=== PATIENT | female | born 1970 | race African-American/Black ===

== ENCOUNTER 2017-09-13 10:11 | Emergency (ER) | payer SELFPAY ==
[2017-09-13] MEDS ORDERED: Ketorolac Tromethamine 60 MG/2 ML VIAL ONE (10:41)
[2017-09-13] MEDS ORDERED: Erythromycin Base 0.5% Oint 1 GM TUBE ONE (10:41)
== END 2017-09-13 11:07 | disposition home or self-care (01) ==
LOC: ERS 10:11
DX: G89.29 Other chronic pain (principal); M25.561 Pain in right knee; H10.9 Unspecified conjunctivitis; I10 Essential (primary) hypertension; F41.9 Anxiety disorder, unspecified; F32.9 Major depressive disorder, single episode, unspecified
CPT/HCPCS: 96372; J1885

== ENCOUNTER 2017-10-23 09:23 | Emergency (ER) | payer SELFPAY ==
[2017-10-23] MEDS ORDERED: HYDROcodone/Acetaminophen 10/325 mg Tablet ONE (09:47)
[2017-10-23] MEDS ORDERED: Ondansetron ODT 4 MG TAB ONE (09:48)
--- NOTE | 2017-10-23 10:09 | CT ---
HEAD CT WITHOUT CONTRAST: Date: 10-23-17 Comparison: 12-22-08 History: Headache, nausea, dizziness and neck pain. Trauma. Technique: Serial axial CT imaging at 5 mm intervals from the vertex through the skull base without c ontrast. FINDINGS: The ethmoid air cells are completely opacified bilaterally, a new finding. The mastoid air cells are well aerated. There is no displaced calvarial fracture. There is no intracranial hemorrhage, midline shift, mass effect or ventricular enlargement. IMPRESSION: No intracranial hemorrhage or displaced calvarial fracture. New complete opacification of bilateral e thmoid air cells. POS: [facility]
== END 2017-10-23 10:27 | disposition home or self-care (01) ==
LOC: ERS 09:23
DX: S06.0X0A Concussion without loss of consciousness, initial encounter (principal); J01.90 Acute sinusitis, unspecified; I10 Essential (primary) hypertension; F41.9 Anxiety disorder, unspecified; F32.9 Major depressive disorder, single episode, unspecified; W01.198A Fall on same level from slipping, tripping and stumbling with subsequent striking against other object, initial encounter
CPT/HCPCS: 70450; Q0162

== ENCOUNTER 2018-02-11 18:30 | Emergency (ER) | payer SELFPAY ==
[2018-02-11 19:41] LABS: Specific Gravity 1.024 (1.002-1.036)
[2018-02-11 19:42] LABS: Pregnancy Test - Urine (BHCG) Negative (Negative); Pregu Control Background? CLEAR/WHITE (CLR/WHITE); Pregu Control Bar Appear? YES (CONTROL BAR)
[2018-02-11 20:17] LABS: Bilirubin Negative (Negative); Blood, Urine Negative (Negative); Glucose, Urine (Dipstick) Negative (Negative); Leukocyte Negative (Negative); Nitrite Negative (Negative); Protein, Urine (Dipstick) Negative (Neg-Trace); Urobilinogen 0.2 mg/dL (0.2-1.0)
[2018-02-11 20:19] LABS: Clarity CLEAR (Clear)
[2018-02-11] MEDS ORDERED: Ketorolac Tromethamine 30 MG/ML VIAL ONE (21:28)
[2018-02-11] MEDS ORDERED: Diazepam 5 MG TAB ONE (21:29)
== END 2018-02-11 22:54 | disposition home or self-care (01) ==
LOC: ERS 18:30
DX: M25.561 Pain in right knee (principal); M25.551 Pain in right hip; M25.511 Pain in right shoulder; I10 Essential (primary) hypertension; F41.9 Anxiety disorder, unspecified; F32.9 Major depressive disorder, single episode, unspecified; Z79.899 Other long term (current) drug therapy
CPT/HCPCS: 81003; 81025; 96372; J1885

== ENCOUNTER 2018-03-04 12:22 | Emergency (ER) | payer SELFPAY ==
[2018-03-04 14:16] LABS: Hemoglobin 15.1 g/dL (12.0-16.0); Mean Corpuscular HGB CONC 32.9 g/dL (32.0-36.0); Mean Corpuscular Hemoglobin 28.2 pg (27.0-31.0); Mean Corpuscular Volume 85.6 fl (81.0-99.0); Mean Platelet Volume 7.8 fL (7.4-10.4); Platelet Count 376 thou/uL (130-400); RBC Distribution Width 12.9 % (11.5-14.5); Red Blood Cell (RBC) Count 5.35 mill/uL (4.20-5.40); White Blood Cell (WBC) Count 13.3 thou/uL (4.8-10.8)
[2018-03-04] MEDS ORDERED: Ondansetron ODT 8 MG TAB ONE (14:31)
[2018-03-04 14:33] LABS: Band 5 % (5-11); Lymphocytes 8 % (21-51); MDiff Complete? YES; Monocytes 1 % (0-10); Neutrophil 85 % (42-75); PLT Morphology Comment Appears Adequate; RBC Morphology Normal
[2018-03-04] MEDS ORDERED: Dicyclomine 20 MG TAB ONE (14:39)
[2018-03-04] MEDS ORDERED: Lidocaine Viscous Sol 2% 15 ml UD Cup ONE (14:39)
[2018-03-04] MEDS ORDERED: Mag-Al 1200 mg/1200 mg/30 ML UDCUP ONE (14:40)
[2018-03-04 14:42] LABS: ALT (SGPT) 21 U/L (8-55); AST (SGOT) 15 U/L (5-34); Albumin 4.1 g/dL (3.5-5.0); Alkaline Phosphatase 77 U/L (40-150); Anion Gap 9 mmol/L (10-20); BUN (Urea Nitrogen) 15 mg/dL (7.0-18.7); Bilirubin, Total 0.5 mg/dL (0.2-1.2); Calc. Creatinine Clearance 0 mL/min (70-130); Carbon Dioxide 26 mmol/L (22-29); Chloride 108 mmol/L (98-107); Estimated GFR-MDRD 78; Globulin 3.1 g/dL (2.4-3.5); Glucose 105 mg/dL (70-105); Lipase 17 U/L (8-78); Protein, Total 7.2 g/dL (6.0-8.3); Sodium 139 mmol/L (136-145)
[2018-03-04 15:12] LABS: Bilirubin Negative (Negative); Blood, Urine Negative (Negative); Clarity CLEAR (Clear); Glucose, Urine (Dipstick) Negative (Negative); Leukocyte Negative (Negative); Nitrite Negative (Negative); Protein, Urine (Dipstick) Trace mg/dL (Neg-Trace); Specific Gravity, Urine 1.024 (1.002-1.036); Urobilinogen 0.2 mg/dL (0.2-1.0)
[2018-03-04 15:15] LABS: Pregnancy Test - Urine (BHCG) Negative (Negative); Pregu Control Background? CLEAR/WHITE (CLR/WHITE); Pregu Control Bar Appear? YES (CONTROL BAR); Specific Gravity 1.024 (1.002-1.036)
== END 2018-03-04 15:23 | disposition home or self-care (01) ==
LOC: ERS 12:22
DX: K52.9 Noninfective gastroenteritis and colitis, unspecified (principal); F32.9 Major depressive disorder, single episode, unspecified; F41.9 Anxiety disorder, unspecified; I10 Essential (primary) hypertension; Z79.899 Other long term (current) drug therapy
CPT/HCPCS: 36415; 80053; 81003; 81025; 83690; 85025; 99284

== ENCOUNTER 2018-07-10 12:16 | Emergency (ER) | payer SELFPAY ==
[2018-07-10 12:56] LABS: #Basophils 0.1 thou/uL (0.0-0.2); #Eosinphils 0.3 thou/uL (0.0-0.7); #Lymphocytes 1.7 thou/uL (1.20-3.40); #Monocytes 0.6 thou/uL (0.11-0.59); #Neutrophils 5.3 thou/uL (1.40-6.50); %Basophils 0.7 % (0.0-1.0); %Eosinophils 3.4 % (0.0-10.0); %Lymphocytes 21.7 % (21.0-51.0); %Monocytes 7.3 % (0.0-10.0); %Neutrophils 66.9 % (42.0-75.0); Hemoglobin 14.1 g/dL (12.0-16.0); Mean Corpuscular HGB CONC 32.8 g/dL (32.0-36.0); Mean Corpuscular Hemoglobin 28.2 pg (27.0-31.0); Mean Platelet Volume 8.3 fL (7.4-10.4); Platelet Count 384 thou/uL (130-400); RBC Distribution Width 12.2 % (11.5-14.5); Red Blood Cell (RBC) Count 4.98 mill/uL (4.20-5.40); White Blood Cell (WBC) Count 7.9 thou/uL (4.8-10.8)
[2018-07-10] MEDS ORDERED: Acetaminophen 500 MG TAB ONE (12:56)
[2018-07-10] MEDS ORDERED: Metoclopramide HCl 10 MG/2 ML VIAL ONE (12:56)
[2018-07-10] MEDS ORDERED: Aspirin 325 MG TAB ONE (12:56)
[2018-07-10] MEDS ORDERED: diphenhydrAMINE 50 MG/ML VIAL ONE (12:56)
[2018-07-10] MEDS ORDERED: Sodium Chloride 0.9% 100 ML ONE (12:56)
[2018-07-10 13:14] LABS: ALT (SGPT) 22 U/L (8-55); AST (SGOT) 16 U/L (5-34); Albumin 3.8 g/dL (3.5-5.0); Alkaline Phosphatase 69 U/L (40-150); Anion Gap 11 mmol/L (10-20); BUN (Urea Nitrogen) 9 mg/dL (7.0-18.7); Bilirubin, Total 0.3 mg/dL (0.2-1.2); CK (CPK) 110 U/L (29-168); Calc. Creatinine Clearance 0 mL/min (70-130); Calcium 9.1 mg/dL (7.8-10.44); Carbon Dioxide 28 mmol/L (22-29); Chloride 105 mmol/L (98-107); Estimated GFR-MDRD 89; Globulin 2.9 g/dL (2.4-3.5); Glucose 89 mg/dL (70-105); Potassium 3.6 mmol/L (3.5-5.1); Protein, Total 6.7 g/dL (6.0-8.3); Sodium 140 mmol/L (136-145)
[2018-07-10 13:18] LABS: Troponin I Less than 0.010 ng/mL (< 0.028)
--- NOTE | 2018-07-10 14:21 | RAD ---
PORTABLE CHEST: HISTORY: Chest pain. FINDINGS: The lungs are clear. The heart and mediastinum are unremarkable. Vascular markings are normal. IMPRESSION: No acute finding. POS: [facility]
== END 2018-07-10 14:25 | disposition home or self-care (01) ==
LOC: ERS 12:16
DX: R07.89 Other chest pain (principal); R51 Headache; I10 Essential (primary) hypertension; F32.9 Major depressive disorder, single episode, unspecified; Z79.899 Other long term (current) drug therapy
CPT/HCPCS: 71045; 80053; 82550; 82553; 84484; 85025; 93005; 96361; 96365; 96375; J1200; J2765; J7050

== ENCOUNTER 2018-11-17 12:26 | Emergency (ER) | payer SELFPAY ==
[2018-11-17 13:13] LABS: #Basophils 0.1 thou/uL (0.0-0.2); #Eosinphils 0.5 thou/uL (0.0-0.7); #Lymphocytes 1.5 thou/uL (1.20-3.40); #Monocytes 0.7 thou/uL (0.11-0.59); #Neutrophils 5.7 thou/uL (1.40-6.50); %Basophils 0.8 % (0.0-1.0); %Eosinophils 5.4 % (0.0-10.0); %Monocytes 8.4 % (0.0-10.0); %Neutrophils 67.4 % (42.0-75.0); Hemoglobin 13.7 g/dL (12.0-16.0); Mean Corpuscular HGB CONC 33.5 g/dL (32.0-36.0); Mean Corpuscular Volume 86.5 fL (78.0-98.0); Mean Platelet Volume 8.4 fL (7.4-10.4); Platelet Count 352 thou/uL (130-400); RBC Distribution Width 12.5 % (11.5-14.5); Red Blood Cell (RBC) Count 4.72 mill/uL (4.20-5.40); White Blood Cell (WBC) Count 8.4 thou/uL (4.8-10.8)
[2018-11-17 13:38] LABS: ALT (SGPT) 46 U/L (8-55); AST (SGOT) 25 U/L (5-34); Albumin 3.8 g/dL (3.5-5.0); Alkaline Phosphatase 65 U/L (40-150); Anion Gap 15 mmol/L (10-20); BUN (Urea Nitrogen) 11 mg/dL (7.0-18.7); Bilirubin, Total 0.2 mg/dL (0.2-1.2); CK (CPK) 127 U/L (29-168); Calc. Creatinine Clearance 0 mL/min (70-130); Calcium 9.3 mg/dL (7.8-10.44); Carbon Dioxide 24 mmol/L (22-29); Chloride 103 mmol/L (98-107); Estimated GFR-MDRD Greater than 90; Globulin 2.6 g/dL (2.4-3.5); Glucose 170 mg/dL (70-105); Lipase 31 U/L (8-78); Potassium 3.7 mmol/L (3.5-5.1); Protein, Total 6.4 g/dL (6.0-8.3); Sodium 138 mmol/L (136-145)
--- NOTE | 2018-11-17 14:23 | RAD ---
PORTABLE CHEST ONE VIEW: Date: 11-17-18 Time: 1:05 p.m. History: Chest pain. FINDINGS: Comparison made with exam of 07-10-18. The heart size is normal. There is continued elevation of the right hemidiaphragm. No focal areas of consolidation, pneumothoraces or pleural effusions are seen. IMPRESSION: No radiographic evidence of acute cardiopulmonary process. POS: [facility]
== END 2018-11-17 14:29 | disposition home or self-care (01) ==
LOC: ERS 12:26
DX: R07.89 Other chest pain (principal); I10 Essential (primary) hypertension; E05.90 Thyrotoxicosis, unspecified without thyrotoxic crisis or storm; E78.00 Pure hypercholesterolemia, unspecified; F32.9 Major depressive disorder, single episode, unspecified; Z79.899 Other long term (current) drug therapy
CPT/HCPCS: 71045; 80053; 82550; 83690; 83880; 84484; 85025; 93005

== ENCOUNTER 2018-12-25 20:29 | Emergency (ER) | payer BC, SELFPAY ==
[2018-12-25 21:56] LABS: Bilirubin Negative (Negative); Blood, Urine Moderate (Negative); Clarity CLOUDY (Clear); Glucose, Urine (Dipstick) Negative (Negative); Leukocyte Large (Negative); Nitrite Negative (Negative); Protein, Urine (Dipstick) Negative (Neg-Trace); Specific Gravity, Urine 1.022 (1.002-1.036); pH, Urine 5.5 (5.0-9.0)
[2018-12-25 21:57] LABS: Bacteria/HPF 3+ HPF (None Seen); Hyaline Casts/LPF 7-10 HYALINE CAST LPF (0-3 Hyaline); Pathc Cast-AUWi Flag 2.04 (0-2.49)
[2018-12-25 22:20] LABS: Hemoglobin 13.5 g/dL (12.0-16.0); Mean Corpuscular HGB CONC 32.1 g/dL (32.0-36.0); Mean Corpuscular Hemoglobin 28.2 pg (27.0-31.0); Mean Corpuscular Volume 87.9 fL (78.0-98.0); Mean Platelet Volume 8.5 fL (7.4-10.4); Platelet Count 363 thou/uL (130-400); RBC Distribution Width 12.6 % (11.5-14.5); White Blood Cell (WBC) Count 10.5 thou/uL (4.8-10.8)
[2018-12-25 22:23] LABS: #Eosinphils 0.4 thou/uL (0.0-0.7); #Lymphocytes 2.4 thou/uL (1.20-3.40); #Monocytes 0.8 thou/uL (0.11-0.59); #Neutrophils 6.9 thou/uL (1.40-6.50); %Basophils 0.2 % (0.0-1.0); %Eosinophils 3.7 % (0.0-10.0); %Lymphocytes 22.7 % (21.0-51.0); %Monocytes 7.8 % (0.0-10.0); %Neutrophils 65.6 % (42.0-75.0)
[2018-12-25 22:44] LABS: ALT (SGPT) 29 U/L (8-55); AST (SGOT) 23 U/L (5-34); Albumin 3.8 g/dL (3.5-5.0); Alkaline Phosphatase 66 U/L (40-150); Anion Gap 15 mmol/L (10-20); BUN (Urea Nitrogen) 22 mg/dL (7.0-18.7); Bilirubin, Total 0.3 mg/dL (0.2-1.2); Calc. Creatinine Clearance 0 mL/min (70-130); Calcium 9.1 mg/dL (7.8-10.44); Carbon Dioxide 24 mmol/L (22-29); Chloride 105 mmol/L (98-107); Estimated GFR-MDRD 59; Globulin 2.6 g/dL (2.4-3.5); Glucose 119 mg/dL (70-105); Lipase 38 U/L (8-78); Potassium 3.3 mmol/L (3.5-5.1); Protein, Total 6.4 g/dL (6.0-8.3); Sodium 141 mmol/L (136-145)
[2018-12-26] MEDS ORDERED: HYDROcodone/Acetaminophen 10/325 mg Tablet ONE (00:13)
--- NOTE | 2018-12-26 07:45 | CT ---
CT OF THE ABDOMEN AND PELVIS WITHOUT IV CONTRAST: INDICATION: Left-sided flank pain for 1 week. COMPARISON: Prior noncontrast CT of the abdomen and pelvis dated 07/04/2017. FINDINGS: The gallbladder is surgically absent. Slightly nodular contour to the liver which may reflect sequelae of early cirrhosis. Recommend corre lation. Unopacified pancreas appears within normal limits. There is a 2 cm adrenal adenoma within the left a drenal gland. There is a stable 4 mm calculus within the inferior pole of the right kidney. No definite ureteral c alculus or hydronephrosis is evident. Slight prominence of the left adnexal region is stable to the most recent comparison in 2017. No minh e fluid is evident. Unopacified large and small bowel appear within normal limits. The appendix is normal within the right lower quadrant. No definite acute osseous abnormality is evident. IMPRESSION: 1. Stable right nephrolithiasis. No ureteral calculus or hydronephrosis. 2. Hypodense prominence of the left adnexa measuring 4.6 cm similar to a comparison in 2017. Estefania r, this is slightly more prominent than expected for a normal left adnexa. A followup pelvic ultraso und is recommended for additional characterization. 3. Slight nodular contour to the liver suspicious for changes of early cirrhosis. 4. Cholelithiasis. 5. Left adrenal adenoma. POS: [facility]
== END 2018-12-26 01:35 | disposition home or self-care (01) ==
LOC: ERS 20:29
DX: N12 Tubulo-interstitial nephritis, not specified as acute or chronic (principal); I10 Essential (primary) hypertension; E05.90 Thyrotoxicosis, unspecified without thyrotoxic crisis or storm; E78.00 Pure hypercholesterolemia, unspecified; F32.9 Major depressive disorder, single episode, unspecified; Z79.899 Other long term (current) drug therapy
CPT/HCPCS: 36415; 74176; 80053; 81003; 81015; 83690; 85025

== ENCOUNTER 2019-04-27 02:45 | Emergency (ER) | payer BC ==
[2019-04-27] MEDS ORDERED: Ketorolac Tromethamine 30 MG/ML VIAL ONE (02:59)
== END 2019-04-27 03:19 | disposition home or self-care (01) ==
LOC: ERS 02:45
DX: T63.2X1A Toxic effect of venom of scorpion, accidental (unintentional), initial encounter (principal); I10 Essential (primary) hypertension; E05.90 Thyrotoxicosis, unspecified without thyrotoxic crisis or storm; E78.00 Pure hypercholesterolemia, unspecified; F32.9 Major depressive disorder, single episode, unspecified; Z79.899 Other long term (current) drug therapy
CPT/HCPCS: 96372; 99282; J1885

== ENCOUNTER 2020-04-02 14:27 | Emergency (ER) | payer BC ==
[~2020-04-02 14:27] MED LIST: Iopamidol-370 76% 500 ML 1 ML ONE
[2020-04-02 14:56] LABS: #Eosinphils 0.3 thou/uL (0.0-0.7); #Lymphocytes 1.6 thou/uL (1.20-3.40); #Monocytes 0.5 thou/uL (0.11-0.59); #Neutrophils 5.1 thou/uL (1.40-6.50); %Basophils 0.1 % (0.0-1.0); %Eosinophils 3.8 % (0.0-10.0); %Lymphocytes 21.8 % (21.0-51.0); %Monocytes 7.2 % (0.0-10.0); %Neutrophils 67.1 % (42.0-75.0); Hemoglobin 14.6 g/dL (12.0-16.0); Mean Corpuscular HGB CONC 33.3 g/dL (32.0-36.0); Mean Corpuscular Hemoglobin 28.3 pg (27.0-31.0); Mean Platelet Volume 9.7 fL (7.4-10.4); Platelet Count 337 thou/uL (130-400); RBC Distribution Width 14.3 % (11.5-14.5); Red Blood Cell (RBC) Count 5.16 mill/uL (4.20-5.40); White Blood Cell (WBC) Count 7.5 thou/uL (4.8-10.8)
[2020-04-02 15:01] LABS: Bacteria/HPF 3+ HPF (None Seen); Bilirubin Negative (Negative); Blood, Urine 1+ (Negative); Clarity Clear (Clear); Glucose, Urine (Dipstick) Greater than 1000 mg/dL (Negative); Leukocyte 75 Leu/uL (Negative); Nitrite Negative (Negative); Protein, Urine (Dipstick) 70 mg/dL (Neg-Trace); Squamous Epithelial 0-3 HPF (0-3); Urobilinogen Normal mg/dL (Less than 2)
[2020-04-02 15:08] LABS: BHCG - Serum Negative (NEGATIVE); Pregs Control Background? CLEAR/WHITE (CLR/WHITE); Pregs Control Bar Appear? YES (CONTROL BAR)
[2020-04-02 15:16] LABS: ALT (SGPT) 54 U/L (8-55); AST (SGOT) 41 U/L (5-34); Albumin 4.3 g/dL (3.5-5.0); Alkaline Phosphatase 97 U/L (40-110); Anion Gap 14 mmol/L (10-20); BUN (Urea Nitrogen) 13 mg/dL (7.0-18.7); Bilirubin, Total 0.4 mg/dL (0.2-1.2); Calc. Creatinine Clearance 0 mL/min (70-130); Calcium 9.4 mg/dL (7.8-10.44); Carbon Dioxide 25 mmol/L (22-29); Chloride 101 mmol/L (98-107); Estimated GFR-MDRD 53; Globulin 3.4 g/dL (2.4-3.5); Glucose 376 mg/dL (70-105); Potassium 3.8 mmol/L (3.5-5.1); Protein, Total 7.7 g/dL (6.0-8.3); Sodium 136 mmol/L (136-145)
[2020-04-02] MEDS ORDERED: Morphine 4 MG/ML VIAL ONE (16:08)
[2020-04-02] MEDS ORDERED: Ondansetron PF 4 MG/2 ML Vial ONE (16:08)
--- NOTE | 2020-04-02 17:12 | CT ---
CT ABDOMEN WITH CONTRAST CT PELVIS WITH CONTRAST: DATE: 04/02/2020 HISTORY: 49-year-old female with abdominal pain and nausea COMPARISON: 05/27/2019 TECHNIQUE: IV injection of iodinated contrast media: administered. Oral contrast media:Not administered FINDINGS: The previously demonstrated calculus at the distal most right ureter is no longer present. The previo usly demonstrated right mild hydroureteronephrosis, and has resolved. Currently, the kidneys, abdominal aorta, spleen, pancreas, appendix and right adrenal, are normal. No major osseous pathology . Lung bases are clear. Again noted is the enlarged, fatty liver. No portal vein thrombosis. No solid or cystic hepatic mass. Clips in gallbladder fossa. No small bowel dilation, ascites, pneumoperitoneum, or colonic diverticulitis. Previously, there was a tubular cystic structure in the left adnexa broadly abutting the left side of the uterus, consistent with left hydrosalpinx, or less likely ovarian cyst. That is no longer present in that location. However, there is a new, similar such thin-walled cystic tubular structure, broadly abutting and indenting the dome of the urinary bladder centered at midline. This cystic structure is folded such that it is C shaped. Its caliber is approximately 3.5 cm. In aggregate, it m easures approximately 7.5 x 6.5 x 3.5 cm. There is no surrounding fat stranding to indicate any edema. Density is that of serous fluid, 1 Hounsfield unit. IMPRESSION: 1) folded tubular cystic structure at midline, indenting the dome of the urinary bladder. This could either be hydrosalpinx or unusual ovarian cyst. Hydrosalpinx is favored. 2) hepatic steatosis and hepatomegaly 3) status post cholecystectomy
[2020-04-02] MEDS ORDERED: Azithromycin 250 MG TAB ONE (17:34)
[2020-04-02] MEDS ORDERED: cefTRIAXone\\ROCEPHIN 250 MG VIAL ONE (17:34)
[2020-04-04 19:25] LABS: Chlamydia by PCR Not Detected (NotDetected); GC by PCR Not Detected (NotDetected)
== END 2020-04-02 18:40 | disposition home or self-care (01) ==
LOC: ERS 14:27
DX: N39.0 Urinary tract infection, site not specified (principal); N70.11 Chronic salpingitis; E11.65 Type 2 diabetes mellitus with hyperglycemia; I10 Essential (primary) hypertension; E78.00 Pure hypercholesterolemia, unspecified; F32.9 Major depressive disorder, single episode, unspecified; Z79.84 Long term (current) use of oral hypoglycemic drugs; Z79.899 Other long term (current) drug therapy
CPT/HCPCS: 36415; 74177; 80053; 81003; 81015; 83690; 84703; 85025; 87480; 87491; 87510; 87591; 87660; 96361; 96365; 96375; J0696; J2270; J2405; Q9967

== ENCOUNTER 2020-04-08 00:45 | Emergency (ER) | payer BC ==
[2020-04-08 01:32] LABS: #Lymphocytes 0.9 thou/uL (1.20-3.40); #Monocytes 0.4 thou/uL (0.11-0.59); #Neutrophils 11.6 thou/uL (1.40-6.50); %Eosinophils 0.4 % (0.0-10.0); %Lymphocytes 7.2 % (21.0-51.0); %Monocytes 2.7 % (0.0-10.0); %Neutrophils 89.8 % (42.0-75.0); Hemoglobin 13.9 g/dL (12.0-16.0); Mean Corpuscular HGB CONC 33.6 g/dL (32.0-36.0); Mean Corpuscular Hemoglobin 28.8 pg (27.0-31.0); Mean Corpuscular Volume 85.6 fL (78.0-98.0); Mean Platelet Volume 10.1 fL (7.4-10.4); Platelet Count 315 thou/uL (130-400); RBC Distribution Width 14.6 % (11.5-14.5); Red Blood Cell (RBC) Count 4.84 mill/uL (4.20-5.40); White Blood Cell (WBC) Count 12.9 thou/uL (4.8-10.8)
[2020-04-08 01:38] LABS: BHCG - Serum Negative (NEGATIVE); Pregs Control Background? CLEAR/WHITE (CLR/WHITE); Pregs Control Bar Appear? YES (CONTROL BAR)
[2020-04-08 01:46] LABS: ALT (SGPT) 67 U/L (8-55); AST (SGOT) 40 U/L (5-34); Albumin 4.3 g/dL (3.5-5.0); Alkaline Phosphatase 95 U/L (40-110); Anion Gap 18 mmol/L (10-20); BUN (Urea Nitrogen) 24 mg/dL (7.0-18.7); Bilirubin, Total 0.2 mg/dL (0.2-1.2); Calc. Creatinine Clearance 0 mL/min (70-130); Calcium 9.4 mg/dL (7.8-10.44); Carbon Dioxide 19 mmol/L (22-29); Chloride 100 mmol/L (98-107); Estimated GFR-MDRD 42; Globulin 3.3 g/dL (2.4-3.5); Potassium 4.2 mmol/L (3.5-5.1); Protein, Total 7.6 g/dL (6.0-8.3); Sodium 133 mmol/L (136-145)
[2020-04-08 01:47] LABS: Glucose 600 mg/dL (70-105)
[2020-04-08 01:54] LABS: Bilirubin Negative (Negative); Blood, Urine Trace (Negative); Clarity Clear (Clear); Glucose, Urine (Dipstick) Greater than 1000 mg/dL (Negative); Leukocyte Negative Leu/uL (Negative); Nitrite Negative (Negative); Protein, Urine (Dipstick) Negative (Neg-Trace); Squamous Epithelial 0-3 HPF (0-3); Urobilinogen Normal mg/dL (Less than 2)
[2020-04-08] MEDS ORDERED: Insulin Regular 300 UNITS/3 ML VIAL ONE (01:55)
[2020-04-08 01:56] LABS: Bacteria/HPF 1+ HPF (None Seen)
== END 2020-04-08 03:15 | disposition home or self-care (01) ==
LOC: ERS 00:45
DX: E11.65 Type 2 diabetes mellitus with hyperglycemia (principal); N39.0 Urinary tract infection, site not specified; I10 Essential (primary) hypertension; E05.90 Thyrotoxicosis, unspecified without thyrotoxic crisis or storm; E78.00 Pure hypercholesterolemia, unspecified; F32.9 Major depressive disorder, single episode, unspecified; Z79.84 Long term (current) use of oral hypoglycemic drugs; Z79.899 Other long term (current) drug therapy; Z79.891 Long term (current) use of opiate analgesic
CPT/HCPCS: 36416; 80053; 81003; 81015; 82010; 84703; 85025; 96361; 96374; J1815

== ENCOUNTER 2020-06-06 08:38 | Day surgery (SDC) | payer BC ==
[2020-06-01 14:48] VITALS: BMI 45.7
--- NOTE | 2020-06-05 14:27 | HP ---
REASON FOR ADMISSION: Persistent left adnexal mass suspicious for hydrosalpinx with left-sided pelvic pain. SCHEDULED PROCEDURES: Laparoscopic left salpingo-oophorectomy. HISTORY OF PRESENT ILLNESS: Ms. Watters is a 49-year-old 3, para 3, status post x3. She was referred from [place] and from the hospital for persistent left lower quadrant pain. Ultrasound and CT scan seem to indicate about a 6 x 2 cm tubular structure consistent with a persistent hydrosalpinx on that side. She desires definitive surgical management despite reassurance that it is unlikely to be malignant and that expectant management would be reasonable. REGULATORY CONSULTANT HISTORY: As noted. No history of STDs. PAST MEDICAL HISTORY: Significant for type 2 diabetes and hypertension. PAST SURGICAL HISTORY: Cholecystectomy and tubal ligation. ALLERGIES: NONE. MEDICATIONS: 1. Glimepiride. 2. Synthroid. 3. Lisinopril. 4. Metformin. SOCIAL HISTORY: Denies tobacco, alcohol, or IV drug use. FAMILY HISTORY: Noncontributory. REVIEW OF SYSTEMS: Noncontributory. PHYSICAL EXAMINATION: GENERAL: Black female 5 feet 2 inches, weight 246, BMI 45. VITAL SIGNS: Blood pressure 128/88, pulse 74, respirations 18. HEENT: Within normal limits. LUNGS: Clear to auscultation bilaterally. HEART: Regular rate and rhythm. BREASTS: No masses bilaterally. ABDOMEN: Soft, nontender. No rebound. Mild guarding to deep palpation in left lower quadrant. PELVIS: Vulva without lesions. Vagina without discharge. Cervix, parous. Uterus, anteverted 4 week size. Adnexa, discomfort on the left. No appreciable mass. EXTREMITIES: No clubbing, cyanosis, or edema. LABORATORY DATA: The patient's OVA1 from [facility] revealed low-level intermediate risk and a slightly elevated OVERA2 risk. CA-125 was 33. Discussed with the patient these findings as well as ultrasound findings and she desires to proceed with surgery. We will administer appropriate antibiotic and DVT prophylaxis. The patient's COVID-19 screening is negative. test is negative. Job ID: [id number]
[2020-06-06] MEDS ORDERED: Gabapentin 300 MG CAP ONE (08:57)
[2020-06-06] MEDS ORDERED: CeleCOXIB 100 MG CAP ONE (08:57)
[2020-06-06] MEDS ORDERED: Famotidine/PF 20 mg/2ml Vial ONE (08:57)
[2020-06-06] MEDS ORDERED: Famotidine 20 MG TAB ONE (08:57)
[2020-06-06] MEDS ORDERED: Ondansetron PF 4 MG/2 ML Vial ONE (10:14)
[2020-06-06] MEDS ORDERED: Dexamethasone 20 MG/5 ML VIAL ONE (10:14)
[2020-06-06] MEDS ORDERED: Lidocaine 1% PF 5 ML VIAL ONE (10:14)
[2020-06-06] MEDS ORDERED: Esmolol 100 MG/10 ML VIAL ONE (10:14)
[2020-06-06] MEDS ORDERED: Rocuronium Bromide 10 MG/ML (10ML VIAL) ONE (10:14)
[2020-06-06] MEDS ORDERED: PROPOFOL 200 MG/20 ML VIAL ONE (10:14)
[2020-06-06] MEDS ORDERED: Glycopyrrolate 0.2 MG/ML 5 ML SYRINGE ONE (10:14)
[2020-06-06] MEDS ORDERED: Bupivacaine PF 0.5% 30 ML VIAL ONE (10:20)
[2020-06-06] MEDS ORDERED: Lidocaine 1% w/Epinephrine 1:100K 20 ML VIAL ONE (10:20)
[2020-06-06] MEDS ORDERED: Fentanyl 100 MCG/2 ML VIAL ONE ×4 (10:21→13:02)
[2020-06-06] MEDS ORDERED: SUGAMMADEX SODIUM 200 MG/2 ML VIAL ONE (11:46)
[2020-06-06] MEDS ORDERED: hydrALAZINE 20 MG/ML VIAL ONE (11:56)
[2020-06-06] MEDS ORDERED: Albuterol Sulfate 1.25 MG/3 ML NEB ONE (11:56)
[2020-06-06] MEDS ORDERED: HYDROcodone/Acetaminophen 5/325 mg Tablet ONE (14:24)
--- NOTE | 2020-06-07 12:52 | OP ---
DATE OF PROCEDURE: 06/06/2020 PREOPERATIVE DIAGNOSIS: Left hydrosalpinx. POSTOPERATIVE DIAGNOSIS: Left hydrosalpinx with 720 degree torsion of hydrosalpinx and mild hydrosalpinx of right fallopian tube. PROCEDURE PERFORMED: Laparoscopic bilateral salpingectomy. PLATING INSPECTOR: REGGIE Coyle. ANESTHESIA: General endotracheal. ESTIMATED BLOOD LOSS: Less than 10 mL. COMPLICATIONS: None. OPERATIVE FINDINGS: 1. Approximately 8 cm hydrosalpinx of the left fallopian tube, status post BTL with 720 degree torsion. 2. Mild hydrosalpinx of right fallopian tube. No torsion. 3. Normal-appearing uterus and ovaries. 4. Hemostasis, clear urine. COUNTS: Correct at the end of the procedure. DISPOSITION: Recovery room in good condition. DESCRIPTION OF PROCEDURE: The patient was taken to operating room. General endotracheal anesthesia was achieved without difficulty. Prepped and draped in dorsal lithotomy position in Ike stirrups. SeeJay manipulator was placed inside the cervix. Senior Pharmacy Technician changed his gloves, turned attention to the abdominal portion of the procedure. A 5 mL of Marcaine was injected in the umbilicus and a 12 mm incision made. Veress needle placed inside the abdominal cavity. Insufflation was carried out with carbon dioxide at max pressure of 15. Once this was done, a 12 mm Lexa was placed through the umbilicus. Confirmation of entry into the peritoneal cavity without trauma to the underlying viscera was noted. The patient is placed in steep Trendelenburg. Right and left lateral da Josh assisted ports were placed lateral to the epigastric vessels and 11 mm port in the right upper quadrant. Findings as noted in the operative findings were noted. Because of the torsion and status post tubal ligation, decision was made to remove the fallopian tube. The mesosalpinx was coagulated across and transected. The hydrosalpinx appeared benign and was incised and drained to facilitate removal from the abdominal cavity. Mild hydrosalpinx was noted on the remnant fallopian tube on the right. This was removed in the same manner. Good hemostasis was noted bilaterally. After removal, they were placed into a 10 mm retrieval bag and pulled out through the family and divorce legal assistant port in the right upper quadrant. The da Josh was undocked. After removing instruments, abdomen desufflated of carbon dioxide. Trocars removed x4. Skin reapproximated using 4-0 Monocryl and Dermabond. Celina manipulator removed. Job ID: [id number]
== END 2020-06-06 15:10 | disposition home or self-care (01) ==
LOC: SDC 08:38
PROVIDERS: ATTEND Obstetrics & Gynecology
PROC: 0UT74ZZ Resection of Bilateral Fallopian Tubes, Percutaneous Endoscopic Approach (ICD-10-PCS; principal; 2020-06-06)
DX: N70.11 Chronic salpingitis (principal); N83.522 Torsion of left fallopian tube; N83.8 Other noninflammatory disorders of ovary, fallopian tube and broad ligament; N73.6 Female pelvic peritoneal adhesions (postinfective); N83.6 Hematosalpinx; E11.9 Type 2 diabetes mellitus without complications; I10 Essential (primary) hypertension; N85.8 Other specified noninflammatory disorders of uterus; Z79.84 Long term (current) use of oral hypoglycemic drugs; Z79.899 Other long term (current) drug therapy; Z88.5 Allergy status to narcotic agent; Z88.6 Allergy status to analgesic agent
CPT/HCPCS: 36415; 86850; 86900; 86901; 88305; J0360; J0690; J1100; J2405; J2704; J3010; S0020; S0028

== ENCOUNTER 2020-08-27 12:21 | Emergency (ER) | payer BC, OTHER ==
[2020-08-27] MEDS ORDERED: diphenhydrAMINE 50 MG/ML VIAL ONE (12:42)
[2020-08-27] MEDS ORDERED: Acetaminophen 500 MG TAB ONE (12:42)
[2020-08-27] MEDS ORDERED: Metoclopramide HCl 10 MG/2 ML VIAL ONE (12:42)
[2020-08-27 12:55] LABS: #Basophils 0.1 thou/uL (0.0-0.2); #Eosinphils 0.3 thou/uL (0.0-0.7); #Lymphocytes 1.8 thou/uL (1.20-3.40); #Monocytes 0.7 thou/uL (0.11-0.59); #Neutrophils 5.6 thou/uL (1.40-6.50); %Basophils 0.7 % (0.0-1.0); %Eosinophils 3.2 % (0.0-10.0); %Lymphocytes 21.4 % (21.0-51.0); %Monocytes 8.6 % (0.0-10.0); Hemoglobin 13.7 g/dL (12.0-16.0); Mean Corpuscular HGB CONC 34.1 g/dL (32.0-36.0); Mean Corpuscular Hemoglobin 29.6 pg (27.0-31.0); Mean Corpuscular Volume 86.8 fL (78.0-98.0); Mean Platelet Volume 8.3 fL (7.4-10.4); Platelet Count 355 thou/uL (130-400); Red Blood Cell (RBC) Count 4.64 mill/uL (4.20-5.40); White Blood Cell (WBC) Count 8.5 thou/uL (4.8-10.8)
--- NOTE | 2020-08-27 12:56 | RAD ---
RADIOGRAPH CHEST 1 VIEW: DATE: 08/27/2020 HISTORY: 49-year-old female with hypertension and diabetes mellitus. FINDINGS: There is no airspace density, pulmonary edema, or pneumothorax. The lateral costophrenic angles are n ot effaced. IMPRESSION: No acute pulmonary findings.
[2020-08-27 13:01] LABS: INR-International Normal Ratio 0.9; Prothrombin Time 12.7 sec (12.0-14.7)
[2020-08-27 13:02] LABS: PTT 30.4 sec (22.9-36.1)
[2020-08-27 13:14] LABS: ALT (SGPT) 31 U/L (8-55); AST (SGOT) 20 U/L (5-34); Albumin 3.9 g/dL (3.5-5.0); Alkaline Phosphatase 95 U/L (40-110); Anion Gap 14 mmol/L (10-20); BUN (Urea Nitrogen) 13 mg/dL (7.0-18.7); Bilirubin, Total 0.2 mg/dL (0.2-1.2); Calc. Creatinine Clearance 0 mL/min (70-130); Calcium 9.2 mg/dL (7.8-10.44); Carbon Dioxide 27 mmol/L (22-29); Chloride 105 mmol/L (98-107); Estimated GFR-MDRD 90; Globulin 3.2 g/dL (2.4-3.5); Glucose 122 mg/dL (70-105); Potassium 3.7 mmol/L (3.5-5.1); Protein, Total 7.1 g/dL (6.0-8.3); Sodium 142 mmol/L (136-145)
[2020-08-27] MEDS ORDERED: Meclizine HCl 25 MG TAB ONE (13:15)
--- NOTE | 2020-08-27 14:14 | CT ---
EXAM: CT angiogram of the head including 3-D rendering: HISTORY: Headache COMPARISON: None FINDINGS: Exam includes with and without contrast imaging of the brain. There is enlargement of the sella turcica with a sellar mass extending into the suprasellar region me asuring approximately 1.5 x 1.7 x 1.9 cm evidence for a pituitary mass increasing in size from prior exam, 10/23/2017 Nonemergent follow-up MRI with and without IV contrast with pituitary mass protocol is suggested There is adequate opacification of the intracranial arteries. Visualized vertebral and basilar arteries: Unremarkable. Right and left intracranial internal carotid arteries: Unremarkable. Right and left Anterior and posterior cerebral arteries: Unremarkable. Right and left middle cerebral arteries: Unremarkable. No evidence for an M1 segment occlusion. No evidence for intracranial aneurysm. All stenosis measurements use Nascet Criteria. IMPRESSION: No significant major branch occlusion or stenosis. No evidence for intracranial aneurysm. 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 Follow-up as above. CTA neck: Adequate opacification of the extracranial carotid and vertebral arteries. The left common carotid ar tiny originates from the innominate artery. There is marked tortuosity of both right and left common and internal carotid arteries. The right internal carotid artery extends to the left of the mi dline with the left internal carotid artery extending to near the level of the midline. No evidence for significant stenosis. Right and left vertebral arteries appear unremarkable. Again noted is a catracho lar and suprasellar mass. Soft tissue neck show some scattered small lymph nodes without overt adenopathy. No abnormal fluid collection. IMPRESSION: No evidence for significant stenosis. Marked internal and common carotid artery tortuosity as above.
[2020-08-27] MEDS ORDERED: cloNIDine 0.1 MG TAB ONE (15:04)
--- NOTE | 2020-08-28 12:51 | CT ---
EXAM: CT angiogram of the head including 3-D rendering: HISTORY: Headache COMPARISON: None FINDINGS: Exam includes with and without contrast imaging of the brain. There is enlargement of the sella turcica with a sellar mass extending into the suprasellar region me asuring approximately 1.5 x 1.7 x 1.9 cm evidence for a pituitary mass increasing in size from prior exam, 10/23/2017 Nonemergent follow-up MRI with and without IV contrast with pituitary mass protocol is suggested There is adequate opacification of the intracranial arteries. Visualized vertebral and basilar arteries: Unremarkable. Right and left intracranial internal carotid arteries: Unremarkable. Right and left Anterior and posterior cerebral arteries: Unremarkable. Right and left middle cerebral arteries: Unremarkable. No evidence for an M1 segment occlusion. No evidence for intracranial aneurysm. All stenosis measurements use Nascet Criteria. IMPRESSION: No significant major branch occlusion or stenosis. No evidence for intracranial aneurysm. 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 Follow-up as above. CTA neck: Adequate opacification of the extracranial carotid and vertebral arteries. The left common carotid ar tiny originates from the innominate artery. There is marked tortuosity of both right and left common and internal carotid arteries. The right internal carotid artery extends to the left of the mi dline with the left internal carotid artery extending to near the level of the midline. No evidence for significant stenosis. Right and left vertebral arteries appear unremarkable. Again noted is a catracho lar and suprasellar mass. Soft tissue neck show some scattered small lymph nodes without overt adenopathy. No abnormal fluid collection. IMPRESSION: No evidence for significant stenosis. Marked internal and common carotid artery tortuosity as above. CODE T Transcribed Date/Time: 08/28/2020 12:50 PM
== END 2020-08-27 16:10 ==
LOC: ERS 12:21
DX: I16.0 Hypertensive urgency (principal); E23.6 Other disorders of pituitary gland; E11.9 Type 2 diabetes mellitus without complications; E05.90 Thyrotoxicosis, unspecified without thyrotoxic crisis or storm; E78.00 Pure hypercholesterolemia, unspecified; J45.909 Unspecified asthma, uncomplicated; F32.9 Major depressive disorder, single episode, unspecified; Z79.899 Other long term (current) drug therapy; Z79.84 Long term (current) use of oral hypoglycemic drugs
CPT/HCPCS: 36415; 70496; 70498; 71045; 80053; 84484; 85025; 85610; 85730; 93005; 96365; 96366; 96375; 96376; J1200; J2765; Q9967

== ENCOUNTER 2021-05-09 16:49 | Emergency (ER) | payer BC, SELFPAY ==
[2021-05-09 17:52] LABS: #Eosinphils 0.8 thou/uL (0.0-0.7); #Lymphocytes 2.2 thou/uL (1.20-3.40); #Monocytes 0.8 thou/uL (0.11-0.59); #Neutrophils 7.1 thou/uL (1.40-6.50); %Basophils 0.3 % (0.0-1.0); %Eosinophils 7.2 % (0.0-10.0); %Lymphocytes 20.1 % (21.0-51.0); %Monocytes 7.2 % (0.0-10.0); %Neutrophils 65.2 % (42.0-75.0); Hemoglobin 12.9 g/dL (12.0-16.0); Mean Corpuscular HGB CONC 32.9 g/dL (32.0-36.0); Mean Corpuscular Hemoglobin 27.6 pg (27.0-31.0); Mean Corpuscular Volume 84.1 fL (78.0-98.0); Platelet Count 342 thou/uL (130-400); RBC Distribution Width 13.7 % (11.5-14.5); Red Blood Cell (RBC) Count 4.67 mill/uL (4.20-5.40)
[2021-05-09] MEDS ORDERED: Insulin Regular 300 UNITS/3 ML VIAL ONE (17:58)
[2021-05-09 18:17] LABS: ALT (SGPT) 19 U/L (8-55); AST (SGOT) 14 U/L (5-34); Albumin 3.7 g/dL (3.5-5.0); Alkaline Phosphatase 109 U/L (40-110); Anion Gap 13 mmol/L (10-20); BUN (Urea Nitrogen) 13 mg/dL (7.0-18.7); Bilirubin, Total 0.2 mg/dL (0.2-1.2); Calc. Creatinine Clearance 0 mL/min (70-130); Calcium 9.4 mg/dL (7.8-10.44); Carbon Dioxide 26 mmol/L (22-29); Chloride 98 mmol/L (98-107); Globulin 3.7 g/dL (2.4-3.5); Glucose 539 mg/dL (70-105); Potassium 4.2 mmol/L (3.5-5.1); Protein, Total 7.4 g/dL (6.0-8.3); Sodium 133 mmol/L (136-145)
[2021-05-09 18:23] LABS: Magnesium 1.8 mg/dL (1.6-2.6)
[2021-05-09 18:35] LABS: Bilirubin Negative (Negative); Blood, Urine Trace (Negative); Clarity Clear (Clear); Glucose, Urine (Dipstick) Greater than 1000 mg/dL (Negative); Ketone, Urine Negative (Negative); Leukocyte Negative Leu/uL (Negative); Nitrite Negative (Negative); Protein, Urine (Dipstick) Negative (Neg-Trace); RBC/HPF 0-3 HPF (0-3); Specific Gravity, Urine 1.029 (1.002-1.036); Squamous Epithelial 0-3 HPF (0-3); Urobilinogen Normal mg/dL (Less than 2); WBC/HPF 0-3 HPF (0-3); pH, Urine 5.5 (5.0-9.0)
[2021-05-09 18:36] LABS: Bacteria/HPF 1+ HPF (None Seen)
[2021-05-09] MEDS ORDERED: Ondansetron PF 4 MG/2 ML Vial ONE (19:42)
== END 2021-05-09 20:08 | disposition home or self-care (01) ==
LOC: ERS 16:49
DX: E11.65 Type 2 diabetes mellitus with hyperglycemia (principal); E86.0 Dehydration; N39.0 Urinary tract infection, site not specified; R82.71 Bacteriuria; E03.9 Hypothyroidism, unspecified; E78.00 Pure hypercholesterolemia, unspecified; J45.909 Unspecified asthma, uncomplicated; Z79.4 Long term (current) use of insulin; Z79.899 Other long term (current) drug therapy
CPT/HCPCS: 36416; 80053; 81003; 81015; 82010; 83690; 83735; 83930; 85025; 96374; J1815; J2405

== ENCOUNTER 2021-07-20 13:57 | Emergency (ER) | payer OTHER ==
[2021-07-20] MEDS ORDERED: Metoclopramide HCl 10 MG/2 ML VIAL ONE (14:50)
[2021-07-20] MEDS ORDERED: diphenhydrAMINE 50 MG/ML VIAL ONE (14:50)
[2021-07-21 18:41] LABS: SARS-CoV-2 PCR by NAA Not Detected (NotDetected)
== END 2021-07-20 17:25 | disposition home or self-care (01) ==
LOC: ERS 13:57
DX: R51.9 Headache, unspecified (principal); M54.2 Cervicalgia; M54.6 Pain in thoracic spine; Z20.822 Contact with and (suspected) exposure to COVID-19; E11.9 Type 2 diabetes mellitus without complications; I10 Essential (primary) hypertension; E05.90 Thyrotoxicosis, unspecified without thyrotoxic crisis or storm; J45.909 Unspecified asthma, uncomplicated; E78.00 Pure hypercholesterolemia, unspecified; Z79.899 Other long term (current) drug therapy; Z79.4 Long term (current) use of insulin
CPT/HCPCS: 96365; 96375; J1200; J2765; U0003; U0005

== ENCOUNTER 2021-12-21 06:24 | Inpatient (IN) | payer OTHER ==
[2021-12-21 06:50] LABS: #Eosinphils 0.3 thou/uL (0.0-0.7); #Lymphocytes 2.4 thou/uL (1.20-3.40); #Monocytes 0.7 thou/uL (0.11-0.59); #Neutrophils 6.4 thou/uL (1.40-6.50); %Basophils 0.5 % (0.0-1.0); %Eosinophils 3.5 % (0.0-10.0); %Monocytes 7.1 % (0.0-10.0); Hemoglobin 14.4 g/dL (12.0-16.0); Mean Corpuscular HGB CONC 32.4 g/dL (32.0-36.0); Mean Corpuscular Hemoglobin 28.5 pg (27.0-31.0); Mean Corpuscular Volume 87.9 fL (78.0-98.0); Mean Platelet Volume 8.7 fL (7.4-10.4); Platelet Count 336 thou/uL (130-400); RBC Distribution Width 13.7 % (11.5-14.5); Red Blood Cell (RBC) Count 5.04 mill/uL (4.20-5.40); White Blood Cell (WBC) Count 9.8 thou/uL (4.8-10.8)
[2021-12-21 07:17] LABS: ALT (SGPT) 23 U/L (8-55); AST (SGOT) 19 U/L (5-34); Albumin 3.8 g/dL (3.5-5.0); Alkaline Phosphatase 91 U/L (40-110); Anion Gap 14 mmol/L (10-20); BUN (Urea Nitrogen) 17 mg/dL (9.8-20.1); Bilirubin, Total 0.3 mg/dL (0.2-1.2); Calc. Creatinine Clearance 0 mL/min (70-130); Calcium 9.1 mg/dL (7.8-10.44); Carbon Dioxide 23 mmol/L (22-29); Chloride 104 mmol/L (98-107); Globulin 3.6 g/dL (2.4-3.5); Glucose 209 mg/dL (70-105); Protein, Total 7.4 g/dL (6.0-8.3); Sodium 137 mmol/L (136-145)
[2021-12-21 07:39] LABS: CKMB 0.9 ng/mL (0-6.6)
[2021-12-21] MEDS ORDERED: Nitroglycerin 2% Ointment 1 INCH/1 GM Packet ONE (07:39)
[2021-12-21] MEDS ORDERED: Dexamethasone 10 MG/ML VIAL ONE (07:39)
[2021-12-21] MEDS ORDERED: Enoxaparin Sodium 100 MG/ML SYRINGE ONE (07:39)
[2021-12-21] MEDS ORDERED: Furosemide 40 MG/4 ML VIAL ONE (07:39)
[2021-12-21] MEDS ORDERED: cefTRIAXone\\ROCEPHIN 2 GM VIAL ONE (07:39)
[2021-12-21 07:50] LABS: SARS-CoV-2 NAA Rapid Test Not Detected (NotDetected)
[2021-12-21] MEDS ORDERED: Dextrose 50% Abboject 50 ML SYRINGE SLOW IVP PRN (08:52)
[2021-12-21] MEDS ORDERED: HumaLOG 300 UNITS/3 ML VIAL SC PRN (08:52)
[2021-12-21] MEDS ORDERED: Dextrose 5% in Water 1,000 ML IV PRN (08:52)
[2021-12-21] MEDS ORDERED: Ondansetron ODT 4 MG TAB PO PRN (08:52)
[2021-12-21] MEDS ORDERED: Azithromycin 500 MG VIAL ONE (08:56)
[2021-12-21] MEDS ORDERED: Lisinopril 5 MG TAB PO SCH (09:00)
[2021-12-21] MEDS ORDERED: Enoxaparin Sodium 80 MG/0.8 ML SYRINGE ONE (09:01)
[2021-12-21] MEDS ORDERED: Enoxaparin Sodium 30 MG/0.3 ML SYRINGE ONE (09:01)
[2021-12-21] MEDS: Enoxaparin Sodium 30 MG/0.3 ML SYRINGE SC SCH (11:13)
[2021-12-21] MEDS ORDERED: Famotidine 20 MG TAB ONE (11:15)
[2021-12-21] MEDS: Famotidine 20 MG TAB PO SCH ×2 (11:25→20:59)
[2021-12-21 12:04] LABS: Troponin I 0.033 ng/mL (< 0.028)
[2021-12-21 12:28] VITALS: BMI 47.0
[2021-12-21 13:16] LABS: Troponin I 0.029 ng/mL (< 0.028)
[2021-12-21] MEDS: Furosemide 40 MG/4 ML VIAL SLOW IVP SCH (13:58)
[2021-12-21] MEDS ORDERED: Nitroglycerin 2% Ointment 1 INCH/1 GM Packet TOP SCH ×2 (14:00→22:00)
[2021-12-21] MEDS: Acetaminophen 325 MG TAB PO PRN (15:34)
[2021-12-21] MEDS: HumaLOG 300 UNITS/3 ML VIAL SC PRN (17:01)
[2021-12-21] MEDS: Atorvastatin Calcium 20 MG TAB PO SCH (20:59)
[2021-12-21] MEDS: Gabapentin 300 MG CAP PO SCH (20:59)
[2021-12-21] MEDS ORDERED: Carvedilol 6.25 MG TAB PO SCH (21:00)
[2021-12-21] MEDS: Fioricet 325/50/40 mg Tablet PO PRN (21:18)
[2021-12-21] MEDS: Lantus 1000 UNITS/10 ML VIAL SC SCH (22:12)
[2021-12-22 04:48] LABS: #Basophils 0.1 thou/uL (0.0-0.2); #Eosinphils 0.3 thou/uL (0.0-0.7); #Lymphocytes 2.3 thou/uL (1.20-3.40); #Neutrophils 7.5 thou/uL (1.40-6.50); %Basophils 0.5 % (0.0-1.0); %Eosinophils 2.9 % (0.0-10.0); %Lymphocytes 20.5 % (21.0-51.0); %Monocytes 9.1 % (0.0-10.0); Hemoglobin 14.1 g/dL (12.0-16.0); Mean Corpuscular HGB CONC 31.6 g/dL (32.0-36.0); Mean Corpuscular Hemoglobin 27.6 pg (27.0-31.0); Mean Corpuscular Volume 87.4 fL (78.0-98.0); Mean Platelet Volume 8.7 fL (7.4-10.4); Platelet Count 323 thou/uL (130-400); RBC Distribution Width 13.5 % (11.5-14.5); Red Blood Cell (RBC) Count 5.12 mill/uL (4.20-5.40); White Blood Cell (WBC) Count 11.1 thou/uL (4.8-10.8)
[2021-12-22 05:06] LABS: Anion Gap 10 mmol/L (10-20); BUN (Urea Nitrogen) 17 mg/dL (9.8-20.1); Calc. Creatinine Clearance 120 mL/min (70-130); Calcium 8.7 mg/dL (7.8-10.44); Carbon Dioxide 26 mmol/L (22-29); Chloride 104 mmol/L (98-107); Glucose 167 mg/dL (70-105); Potassium 3.2 mmol/L (3.5-5.1); Sodium 137 mmol/L (136-145)
[2021-12-22] MEDS: Furosemide 40 MG/4 ML VIAL SLOW IVP SCH ×2 (05:57→13:55)
[2021-12-22] MEDS ORDERED: Electrolyte Replacement Protocol 1 EACH FS SCH (06:00)
[2021-12-22] MEDS ORDERED: Potassium Chloride 20 MEQ TAB PO SCH (06:00)
[2021-12-22] MEDS: HumaLOG 300 UNITS/3 ML VIAL SC PRN ×3 (07:19→16:06)
[2021-12-22] MEDS: Aspirin 81 mg Enteric Coated Tablet PO SCH (08:27)
[2021-12-22] MEDS: Enoxaparin Sodium 30 MG/0.3 ML SYRINGE SC SCH (08:27)
[2021-12-22] MEDS: Spironolactone 25 MG TAB PO SCH (08:27)
[2021-12-22] MEDS: Lantus 1000 UNITS/10 ML VIAL SC SCH ×2 (08:27→21:22)
[2021-12-22] MEDS: Famotidine 20 MG TAB PO SCH ×2 (08:27→21:14)
[2021-12-22] MEDS: Empagliflozin 10 MG TAB PO SCH (08:27)
[2021-12-22] MEDS: Carvedilol 25 MG TAB PO SCH ×2 (08:27→16:06)
[2021-12-22] MEDS: Acetaminophen 325 MG TAB PO PRN ×2 (08:29→13:54)
[2021-12-22] MEDS: Docusate 100 MG CAP PO PRN (21:10)
[2021-12-22] MEDS: Gabapentin 300 MG CAP PO SCH (21:11)
[2021-12-22] MEDS: Atorvastatin Calcium 20 MG TAB PO SCH (21:11)
[2021-12-23 05:12] LABS: #Basophils 0.1 thou/uL (0.0-0.2); #Eosinphils 0.3 thou/uL (0.0-0.7); #Lymphocytes 2.8 thou/uL (1.20-3.40); #Monocytes 1.1 thou/uL (0.11-0.59); #Neutrophils 7.1 thou/uL (1.40-6.50); %Basophils 0.8 % (0.0-1.0); %Eosinophils 2.9 % (0.0-10.0); %Lymphocytes 24.5 % (21.0-51.0); %Monocytes 9.4 % (0.0-10.0); %Neutrophils 62.5 % (42.0-75.0); Hemoglobin 14.7 g/dL (12.0-16.0); Mean Corpuscular HGB CONC 32.1 g/dL (32.0-36.0); Mean Corpuscular Hemoglobin 28.2 pg (27.0-31.0); Mean Corpuscular Volume 87.8 fL (78.0-98.0); Mean Platelet Volume 8.7 fL (7.4-10.4); Platelet Count 338 thou/uL (130-400); RBC Distribution Width 13.6 % (11.5-14.5); White Blood Cell (WBC) Count 11.4 thou/uL (4.8-10.8)
[2021-12-23 05:34] LABS: Anion Gap 14 mmol/L (10-20); BUN (Urea Nitrogen) 23 mg/dL (9.8-20.1); Calc. Creatinine Clearance 93 mL/min (70-130); Calcium 9.4 mg/dL (7.8-10.44); Carbon Dioxide 27 mmol/L (22-29); Chloride 104 mmol/L (98-107); Glucose 116 mg/dL (70-105); Potassium 3.5 mmol/L (3.5-5.1); Sodium 141 mmol/L (136-145)
[2021-12-23] MEDS: Furosemide 40 MG/4 ML VIAL SLOW IVP SCH (06:39)
[2021-12-23] MEDS: Acetaminophen 325 MG TAB PO PRN (06:44)
[2021-12-23] MEDS ORDERED: Potassium Chloride 20 MEQ TAB PO SCH (07:00)
[2021-12-23] MEDS ORDERED: Carvedilol 25 MG TAB PO SCH ×2 (08:29→08:45)
[2021-12-23] MEDS: Spironolactone 25 MG TAB PO SCH (08:55)
[2021-12-23] MEDS: Aspirin 81 mg Enteric Coated Tablet PO SCH (08:56)
[2021-12-23] MEDS: Enoxaparin Sodium 30 MG/0.3 ML SYRINGE SC SCH (08:56)
[2021-12-23] MEDS: Famotidine 20 MG TAB PO SCH ×2 (08:56→21:23)
[2021-12-23] MEDS: Empagliflozin 10 MG TAB PO SCH (08:56)
[2021-12-23] MEDS: Fioricet 325/50/40 mg Tablet PO PRN ×2 (08:59→21:39)
[2021-12-23] MEDS: Lantus 1000 UNITS/10 ML VIAL SC SCH ×2 (09:02→21:23)
[2021-12-23] MEDS: Carvedilol 25 MG TAB PO SCH ×2 (10:44→16:44)
[2021-12-23] MEDS: HumaLOG 300 UNITS/3 ML VIAL SC PRN (12:17)
[2021-12-23] MEDS: Gabapentin 300 MG CAP PO SCH (21:22)
[2021-12-23] MEDS: Atorvastatin Calcium 20 MG TAB PO SCH (21:23)
[2021-12-24 05:25] LABS: Anion Gap 15 mmol/L (10-20); BUN (Urea Nitrogen) 31 mg/dL (9.8-20.1); Calc. Creatinine Clearance 77 mL/min (70-130); Calcium 9.2 mg/dL (7.8-10.44); Carbon Dioxide 27 mmol/L (22-29); Chloride 103 mmol/L (98-107); Glucose 126 mg/dL (70-105); Potassium 3.5 mmol/L (3.5-5.1); Sodium 141 mmol/L (136-145)
[2021-12-24] MEDS ORDERED: Potassium Chloride 20 MEQ TAB PO SCH (09:30)
[2021-12-24] MEDS: Spironolactone 25 MG TAB PO SCH (09:40)
[2021-12-24] MEDS: Aspirin 81 mg Enteric Coated Tablet PO SCH (09:40)
[2021-12-24] MEDS: Famotidine 20 MG TAB PO SCH ×2 (09:41→22:08)
[2021-12-24] MEDS: Empagliflozin 10 MG TAB PO SCH (09:42)
[2021-12-24] MEDS: Carvedilol 25 MG TAB PO SCH ×2 (09:42→17:45)
[2021-12-24] MEDS: Enoxaparin Sodium 30 MG/0.3 ML SYRINGE SC SCH (09:43)
[2021-12-24] MEDS: Lantus 1000 UNITS/10 ML VIAL SC SCH ×3 (09:43→22:12)
[2021-12-24] MEDS: Docusate 100 MG CAP PO PRN (09:46)
[2021-12-24] MEDS ORDERED: Sodium Chloride 0.9% 1,000 ML IV SCH (11:00)
[2021-12-24] MEDS ORDERED: Sodium Chloride 0.9% 500 ML IV SCH (11:00)
[2021-12-24] MEDS ORDERED: Lidocaine 1% (PF) 30 ML VIAL ONE ×2 (11:34→11:35)
[2021-12-24] MEDS ORDERED: Nitroglycerin 100MG/250ML BOT 0 ML ONE (11:39)
[2021-12-24] MEDS ORDERED: Heparin 10,000 UNITS/ 10 ML VIAL ONE (11:39)
[2021-12-24] MEDS ORDERED: Verapamil 5 MG/2 ML VIAL ONE (11:39)
[2021-12-24] MEDS: Atorvastatin Calcium 20 MG TAB PO SCH (22:08)
[2021-12-24] MEDS: Gabapentin 300 MG CAP PO SCH (22:08)
[2021-12-24] MEDS: Fioricet 325/50/40 mg Tablet PO PRN (22:11)
[2021-12-25 04:51] LABS: Anion Gap 11 mmol/L (10-20); BUN (Urea Nitrogen) 32 mg/dL (9.8-20.1); Calc. Creatinine Clearance 88 mL/min (70-130); Calcium 8.6 mg/dL (7.8-10.44); Carbon Dioxide 27 mmol/L (22-29); Chloride 107 mmol/L (98-107); Glucose 112 mg/dL (70-105); Sodium 141 mmol/L (136-145)
[2021-12-25] MEDS: Aspirin 81 mg Enteric Coated Tablet PO SCH (05:48)
[2021-12-25] MEDS: Empagliflozin 10 MG TAB PO SCH (05:48)
[2021-12-25] MEDS: Famotidine 20 MG TAB PO SCH ×2 (05:48→20:52)
[2021-12-25] MEDS: Carvedilol 25 MG TAB PO SCH ×3 (05:53→17:41)
[2021-12-25] MEDS: Spironolactone 25 MG TAB PO SCH (05:54)
[2021-12-25] MEDS: Enoxaparin Sodium 30 MG/0.3 ML SYRINGE SC SCH (05:54)
[2021-12-25] MEDS: Lantus 1000 UNITS/10 ML VIAL SC SCH ×2 (05:55→20:55)
[2021-12-25] MEDS ORDERED: Iopamidol 370 76% 100 ML VIAL ONE (10:18)
[2021-12-25] MEDS ORDERED: Sodium Chloride 0.9% 1,000 ML IV SCH ×2 (10:45→11:15)
[2021-12-25] MEDS ORDERED: Lidocaine 1% (PF) 30 ML VIAL ONE ×2 (10:58→11:19)
[2021-12-25] MEDS ORDERED: Heparin 10,000 UNITS/ 10 ML VIAL ONE (11:00)
[2021-12-25] MEDS ORDERED: Verapamil 5 MG/2 ML VIAL ONE (11:00)
[2021-12-25] MEDS ORDERED: Nitroglycerin 100MG/250ML BOT 250 ML ONE (11:00)
[2021-12-25] MEDS ORDERED: Fentanyl 100 MCG/2 ML VIAL ONE (11:29)
[2021-12-25] MEDS ORDERED: Midazolam HCl 2 mg/2 ml Vial ONE (11:30)
[2021-12-25] MEDS ORDERED: Sodium Chloride 0.9% 200 ML IV PRN (12:10)
[2021-12-25] MEDS ORDERED: Nitroglycerin 0.4 MG TAB (25 Tab Bottle) SL PRN (12:10)
[2021-12-25] MEDS: Sodium Chloride 0.9% 1,000 ML IV SCH ×2 (12:30→22:35)
[2021-12-25] MEDS ORDERED: Bisacodyl 10 MG SUPP PR PRN (16:15)
[2021-12-25] MEDS ORDERED: Fluconazole In NaCl,Iso-Osm 200 MG in Premix Bag 1 BAG IVPB SCH (16:30)
[2021-12-25] MEDS: Gabapentin 300 MG CAP PO SCH (20:52)
[2021-12-25] MEDS: Sacubitril 49 MG/Valsartan 51 MG TABLET PO SCH (20:52)
[2021-12-25] MEDS: Senokot S 8.6-50 MG TAB PO SCH (20:52)
[2021-12-25] MEDS: Acetaminophen 325 MG TAB PO PRN (20:53)
[2021-12-25] MEDS: Nystatin Cream 30 GM TUBE TOP SCH (20:59)
[2021-12-26 03:05] LABS: Bilirubin Negative (Negative); Blood, Urine 1+ (Negative); Clarity Clear (Clear); Glucose, Urine (Dipstick) Greater than 1000 mg/dL (Negative); Ketone, Urine Negative (Negative); Leukocyte 75 Leu/uL (Negative); Nitrite Negative (Negative); Protein, Urine (Dipstick) 10 mg/dL (Neg-Trace); RBC/HPF 0-3 HPF (0-3); Specific Gravity, Urine 1.023 (1.002-1.036); Squamous Epithelial 0-3 HPF (0-3); Urobilinogen Normal mg/dL (Less than 2)
[2021-12-26 03:12] LABS: Bacteria/HPF 1+ HPF (None Seen)
[2021-12-26 04:59] LABS: Cardiac Risk 5.7 (Less than 4.5)
[2021-12-26] MEDS ORDERED: Furosemide 40 MG/4 ML VIAL SLOW IVP SCH (07:30)
[2021-12-26 08:49] LABS: Anion Gap 11 mmol/L (10-20); BUN (Urea Nitrogen) 20 mg/dL (9.8-20.1); Calc. Creatinine Clearance 117 mL/min (70-130); Calcium 8.5 mg/dL (7.8-10.44); Carbon Dioxide 24 mmol/L (22-29); Chloride 108 mmol/L (98-107); Glucose 105 mg/dL (70-105); Potassium 4.2 mmol/L (3.5-5.1); Sodium 139 mmol/L (136-145)
[2021-12-26] MEDS ORDERED: Fluconazole 100 MG TAB PO SCH (09:00)
[2021-12-26] MEDS ORDERED: Polyethylene Glycol 3350 17 GM Packet PO SCH (09:00)
[2021-12-26] MEDS: Carvedilol 25 MG TAB PO SCH (09:55)
[2021-12-26] MEDS: Empagliflozin 10 MG TAB PO SCH (10:00)
[2021-12-26] MEDS: Aspirin 81 mg Enteric Coated Tablet PO SCH (10:00)
[2021-12-26] MEDS: Famotidine 20 MG TAB PO SCH (10:01)
[2021-12-26] MEDS: Enoxaparin Sodium 30 MG/0.3 ML SYRINGE SC SCH (10:01)
[2021-12-26] MEDS: Lantus 1000 UNITS/10 ML VIAL SC SCH (10:02)
[2021-12-26] MEDS: Nystatin Cream 30 GM TUBE TOP SCH (10:03)
[2021-12-26] MEDS: Senokot S 8.6-50 MG TAB PO SCH (10:04)
[2021-12-26] MEDS: Sacubitril 49 MG/Valsartan 51 MG TABLET PO SCH (10:13)
[2021-12-26] MEDS: Acetaminophen 325 MG TAB PO PRN (10:14)
[2021-12-26] MEDS: Sodium Chloride 0.9% 1,000 ML IV SCH (10:20)
[2021-12-26 13:17] VITALS: BP 113/68; TEMP 98.6
[2021-12-27] MEDS ORDERED: Spironolactone 25 MG TAB PO SCH (08:00)
== END 2021-12-26 15:00 | disposition home or self-care (01) | DRG 286 ==
LOC: ERS 06:24 → ERHOLD 08:11 → 2NO 12:21
PROVIDERS: ADMIT Internal Medicine; ATTEND Internal Medicine
PROC: 4A023N7 Measurement of Cardiac Sampling and Pressure, Left Heart, Percutaneous Approach (ICD-10-PCS; principal; 2021-12-25)
PROC: B2111ZZ Fluoroscopy of Multiple Coronary Arteries using Low Osmolar Contrast (ICD-10-PCS; 2021-12-25)
PROC: B2151ZZ Fluoroscopy of Left Heart using Low Osmolar Contrast (ICD-10-PCS; 2021-12-25)
DX: I11.0 Hypertensive heart disease with heart failure (principal); I50.23 Acute on chronic systolic (congestive) heart failure; J96.01 Acute respiratory failure with hypoxia; Z68.42 Body mass index [BMI] 45.0-49.9, adult; I47.2 Ventricular tachycardia; Z20.822 Contact with and (suspected) exposure to COVID-19; I42.8 Other cardiomyopathies; E66.01 Morbid (severe) obesity due to excess calories; E78.00 Pure hypercholesterolemia, unspecified; F32.A Depression, unspecified; F41.9 Anxiety disorder, unspecified; E03.9 Hypothyroidism, unspecified; E11.42 Type 2 diabetes mellitus with diabetic polyneuropathy; J45.909 Unspecified asthma, uncomplicated; I08.1 Rheumatic disorders of both mitral and tricuspid valves; G43.909 Migraine, unspecified, not intractable, without status migrainosus; K59.00 Constipation, unspecified; Z88.6 Allergy status to analgesic agent; Z79.899 Other long term (current) drug therapy; Z79.84 Long term (current) use of oral hypoglycemic drugs; Z98.51 Tubal ligation status; Z90.49 Acquired absence of other specified parts of digestive tract; Z83.3 Family history of diabetes mellitus; Z82.49 Family history of ischemic heart disease and other diseases of the circulatory system
CPT/HCPCS: 36415; 36416; 71045; 80048; 80053; 80061; 81001; 82553; 83880; 84484; 85025; 87040; 87086; 93005; 93306; 93458; 93798; 94760; 96365; 96367; 96372; 96375; 99152; J0456; J0696; J1100; J1450; J1644; J1650; J1815; J1940; J2001; J2250; J3010; J7050; Q0162; Q9967; U0002

== ENCOUNTER 2022-02-18 12:28 | Outpatient (CLI) | payer OTHER | END 2022-02-18 12:29 | disposition home or self-care (01) | LOC: BICRAD 12:28 | PROVIDERS: ATTEND Nurse Practitioner Family | DX: M25.511 Pain in right shoulder (principal); M25.561 Pain in right knee; M54.50 Low back pain, unspecified; M17.11 Unilateral primary osteoarthritis, right knee; M19.011 Primary osteoarthritis, right shoulder; M47.816 Spondylosis without myelopathy or radiculopathy, lumbar region | CPT/HCPCS: 72100 ==

== ENCOUNTER 2022-03-04 18:35 | Emergency (ER) | payer OTHER ==
[2022-03-04 20:04] LABS: #Eosinphils 0.3 thou/uL (0.0-0.7); #Lymphocytes 2.3 thou/uL (1.20-3.40); #Monocytes 0.7 thou/uL (0.11-0.59); #Neutrophils 6.4 thou/uL (1.40-6.50); %Basophils 0.3 % (0.0-1.0); %Eosinophils 2.9 % (0.0-10.0); %Lymphocytes 23.9 % (21.0-51.0); %Monocytes 7.3 % (0.0-10.0); %Neutrophils 65.6 % (42.0-75.0); Mean Corpuscular HGB CONC 33.4 g/dL (32.0-36.0); Mean Corpuscular Hemoglobin 28.7 pg (27.0-31.0); Mean Corpuscular Volume 85.9 fL (78.0-98.0); Mean Platelet Volume 8.4 fL (7.4-10.4); Platelet Count 345 thou/uL (130-400); RBC Distribution Width 12.9 % (11.5-14.5); Red Blood Cell (RBC) Count 4.89 mill/uL (4.20-5.40); White Blood Cell (WBC) Count 9.7 thou/uL (4.8-10.8)
[2022-03-04 20:27] LABS: ALT (SGPT) 15 U/L (8-55); AST (SGOT) 11 U/L (5-34); Alkaline Phosphatase 99 U/L (40-110); Anion Gap 16 mmol/L (10-20); BUN (Urea Nitrogen) 28 mg/dL (9.8-20.1); Bilirubin, Total 0.3 mg/dL (0.2-1.2); Calc. Creatinine Clearance 0 mL/min (70-130); Calcium 9.2 mg/dL (7.8-10.44); Carbon Dioxide 22 mmol/L (22-29); Chloride 101 mmol/L (98-107); Globulin 3.9 g/dL (2.4-3.5); Glucose 362 mg/dL (70-105); Lipase 46 U/L (8-78); Protein, Total 7.9 g/dL (6.0-8.3); Sodium 135 mmol/L (136-145)
[2022-03-04] MEDS ORDERED: Ondansetron PF 4 MG/2 ML Vial ONE (20:36)
[2022-03-04] MEDS ORDERED: Acetaminophen 500 MG TAB ONE (20:36)
[2022-03-04 21:43] LABS: Bilirubin Negative (Negative); Blood, Urine Negative (Negative); Clarity Clear (Clear); Glucose, Urine (Dipstick) Greater than 1000 mg/dL (Negative); Ketone, Urine Negative (Negative); Leukocyte Negative Leu/uL (Negative); Nitrite Negative (Negative); Protein, Urine (Dipstick) Negative (Neg-Trace); Specific Gravity, Urine 1.031 (1.002-1.036); Urobilinogen Normal mg/dL (Less than 2)
== END 2022-03-04 22:15 | disposition home or self-care (01) ==
LOC: ERS 18:35
DX: E11.65 Type 2 diabetes mellitus with hyperglycemia (principal); E86.0 Dehydration; I11.0 Hypertensive heart disease with heart failure; I50.9 Heart failure, unspecified; E03.9 Hypothyroidism, unspecified; E78.00 Pure hypercholesterolemia, unspecified; Z79.4 Long term (current) use of insulin; Z79.51 Long term (current) use of inhaled steroids; Z79.899 Other long term (current) drug therapy
CPT/HCPCS: 36415; 36416; 80053; 81003; 83690; 85025; 96361; 96374; J2405

== ENCOUNTER 2022-04-04 14:25 | Emergency (ER) | payer OTHER ==
[2022-04-04 15:29] LABS: Bacteria/HPF 2+ HPF (None Seen); Bilirubin Negative (Negative); Blood, Urine Trace (Negative); Clarity Clear (Clear); Glucose, Urine (Dipstick) Greater than 1000 mg/dL (Negative); Ketone, Urine Negative (Negative); Leukocyte 250 Leu/uL (Negative); Nitrite Negative (Negative); Protein, Urine (Dipstick) Negative (Neg-Trace); RBC/HPF 0-3 HPF (0-3); Specific Gravity, Urine 1.031 (1.002-1.036); Urobilinogen Normal mg/dL (Less than 2); WBC/HPF 21-50 HPF (0-3)
[2022-04-04 15:58] LABS: ALT (SGPT) 17 U/L (8-55); AST (SGOT) 12 U/L (5-34); Albumin 3.9 g/dL (3.5-5.0); Alkaline Phosphatase 90 U/L (40-110); Anion Gap 16 mmol/L (10-20); BUN (Urea Nitrogen) 20 mg/dL (9.8-20.1); Bilirubin, Total 0.3 mg/dL (0.2-1.2); Calc. Creatinine Clearance 0 mL/min (70-130); Carbon Dioxide 22 mmol/L (22-29); Chloride 105 mmol/L (98-107); Globulin 3.5 g/dL (2.4-3.5); Glucose 302 mg/dL (70-105); Potassium 3.9 mmol/L (3.5-5.1); Protein, Total 7.4 g/dL (6.0-8.3); Sodium 139 mmol/L (136-145)
[2022-04-04 16:03] LABS: #Basophils 0.1 thou/uL (0.0-0.2); #Eosinphils 0.4 thou/uL (0.0-0.7); #Lymphocytes 2.3 thou/uL (1.20-3.40); #Monocytes 0.7 thou/uL (0.11-0.59); #Neutrophils 6.9 thou/uL (1.40-6.50); %Basophils 0.7 % (0.0-1.0); %Eosinophils 3.6 % (0.0-10.0); %Monocytes 6.4 % (0.0-10.0); %Neutrophils 67.3 % (42.0-75.0); Hemoglobin 13.7 g/dL (12.0-16.0); Mean Corpuscular HGB CONC 31.6 g/dL (32.0-36.0); Mean Corpuscular Hemoglobin 27.9 pg (27.0-31.0); Mean Corpuscular Volume 88.2 fL (78.0-98.0); Mean Platelet Volume 8.8 fL (7.4-10.4); Platelet Count 313 thou/uL (130-400); RBC Distribution Width 13.5 % (11.5-14.5); Red Blood Cell (RBC) Count 4.92 mill/uL (4.20-5.40); White Blood Cell (WBC) Count 10.2 thou/uL (4.8-10.8)
[2022-04-04 16:30] LABS: BHCG - Serum Negative (NEGATIVE); Pregs Control Background? CLEAR/WHITE (CLR/WHITE); Pregs Control Bar Appear? YES (CONTROL BAR)
[2022-04-04] MEDS ORDERED: HYDROcodone/Acetaminophen 10/325 mg Tablet ONE (17:07)
== END 2022-04-04 16:58 | disposition home or self-care (01) ==
LOC: ERS 14:25
DX: M54.50 Low back pain, unspecified (principal); N39.0 Urinary tract infection, site not specified; I11.0 Hypertensive heart disease with heart failure; I50.9 Heart failure, unspecified; E11.9 Type 2 diabetes mellitus without complications; E05.90 Thyrotoxicosis, unspecified without thyrotoxic crisis or storm; E78.00 Pure hypercholesterolemia, unspecified; J45.909 Unspecified asthma, uncomplicated
CPT/HCPCS: 36415; 80053; 81003; 81015; 83690; 84703; 85025; 87086; 99283

== ENCOUNTER 2022-04-29 11:51 | Emergency (ER) | payer OTHER ==
[2022-04-29 12:35] LABS: #Eosinphils 0.3 thou/uL (0.0-0.7); #Lymphocytes 0.7 thou/uL (1.20-3.40); #Monocytes 0.6 thou/uL (0.11-0.59); #Neutrophils 7.7 thou/uL (1.40-6.50); %Basophils 0.2 % (0.0-1.0); %Eosinophils 2.7 % (0.0-10.0); %Monocytes 6.4 % (0.0-10.0); %Neutrophils 82.7 % (42.0-75.0); Hemoglobin 14.7 g/dL (12.0-16.0); Mean Corpuscular HGB CONC 32.8 g/dL (32.0-36.0); Mean Corpuscular Hemoglobin 28.1 pg (27.0-31.0); Mean Corpuscular Volume 85.7 fL (78.0-98.0); Platelet Count 292 thou/uL (130-400); RBC Distribution Width 13.2 % (11.5-14.5); Red Blood Cell (RBC) Count 5.23 mill/uL (4.20-5.40); White Blood Cell (WBC) Count 9.3 thou/uL (4.8-10.8)
[2022-04-29 12:56] LABS: ALT (SGPT) 15 U/L (8-55); AST (SGOT) 11 U/L (5-34); Albumin 4.2 g/dL (3.5-5.0); Alkaline Phosphatase 117 U/L (40-110); Anion Gap 16 mmol/L (10-20); BUN (Urea Nitrogen) 16 mg/dL (9.8-20.1); Bilirubin, Total 0.4 mg/dL (0.2-1.2); Calc. Creatinine Clearance 0 mL/min (70-130); Calcium 9.4 mg/dL (7.8-10.44); Carbon Dioxide 24 mmol/L (22-29); Chloride 101 mmol/L (98-107); Estimated GFR 54; Globulin 3.2 g/dL (2.4-3.5); Glucose 371 mg/dL (70-105); Lipase 41 U/L (8-78); Potassium 4.1 mmol/L (3.5-5.1); Protein, Total 7.4 g/dL (6.0-8.3); Sodium 137 mmol/L (136-145)
[2022-04-29 12:57] LABS: Bilirubin Negative (Negative); Blood, Urine 1+ (Negative); Clarity Turbid (Clear); Glucose, Urine (Dipstick) Greater than 1000 mg/dL (Negative); Ketone, Urine Negative (Negative); Leukocyte 500 Leu/uL (Negative); Nitrite Negative (Negative); Protein, Urine (Dipstick) 10 mg/dL (Neg-Trace); Specific Gravity, Urine 1.033 (1.002-1.036); Urobilinogen Normal mg/dL (Less than 2); WBC/HPF Greater than 50 HPF (0-3); pH, Urine 5.5 (5.0-9.0)
[2022-04-29 12:58] LABS: Bacteria/HPF 1+ HPF (None Seen)
[2022-04-29 14:00] LABS: Actual Bicarbonate (HCO3v) 25 mEq/L (22-28); Base Excess -0.2 mEq/L (-2.0 to +3.0); Calcium, Ionized (venous) 1.12 mmol/L (1.16-1.32); Chloride (VBG) 102 mmol/L (98-106); Hemoglobin (Hb) 14.8 g/dL (11.7-16.0); Potassium (VBG) 4.03 mmol/L (3.70-5.30); Sodium 137.4 mmol/L (133-146); pH (venous) 7.37 (7.32-7.43)
[2022-04-29] MEDS ORDERED: Acetaminophen 500 MG TAB ONE (14:14)
== END 2022-04-29 15:57 | disposition home or self-care (01) ==
LOC: ERS 11:51
DX: E11.65 Type 2 diabetes mellitus with hyperglycemia (principal); N39.0 Urinary tract infection, site not specified; I11.0 Hypertensive heart disease with heart failure; I50.9 Heart failure, unspecified; E78.00 Pure hypercholesterolemia, unspecified; E05.90 Thyrotoxicosis, unspecified without thyrotoxic crisis or storm; J45.909 Unspecified asthma, uncomplicated; Z79.4 Long term (current) use of insulin; Z79.899 Other long term (current) drug therapy
CPT/HCPCS: 36415; 36416; 71045; 80053; 81003; 81015; 82010; 82805; 83690; 83880; 84484; 85025; 87086; 93005

== ENCOUNTER 2022-05-29 12:00 | Emergency (ER) | payer OTHER ==
[2022-05-29] MEDS ORDERED: Ondansetron PF 4 MG/2 ML Vial ONE (12:44)
[2022-05-29 13:00] LABS: #Eosinphils 0.3 thou/uL (0.0-0.7); #Lymphocytes 1.7 thou/uL (1.20-3.40); #Monocytes 0.6 thou/uL (0.11-0.59); #Neutrophils 5.5 thou/uL (1.40-6.50); %Basophils 0.4 % (0.0-1.0); %Eosinophils 3.8 % (0.0-10.0); %Lymphocytes 21.2 % (21.0-51.0); %Monocytes 7.4 % (0.0-10.0); %Neutrophils 67.2 % (42.0-75.0); Mean Corpuscular HGB CONC 31.5 g/dL (32.0-36.0); Mean Corpuscular Hemoglobin 27.4 pg (27.0-31.0); Mean Platelet Volume 8.8 fL (7.4-10.4); Platelet Count 314 thou/uL (130-400); White Blood Cell (WBC) Count 8.2 thou/uL (4.8-10.8)
[2022-05-29 13:26] LABS: ALT (SGPT) 14 U/L (8-55); AST (SGOT) 13 U/L (5-34); Alkaline Phosphatase 88 U/L (40-110); Anion Gap 13 mmol/L (10-20); BUN (Urea Nitrogen) 15 mg/dL (9.8-20.1); Bilirubin, Total 0.3 mg/dL (0.2-1.2); Calc. Creatinine Clearance 0 mL/min (70-130); Calcium 9.7 mg/dL (7.8-10.44); Carbon Dioxide 26 mmol/L (22-29); Chloride 101 mmol/L (98-107); Estimated GFR 58; Globulin 3.4 g/dL (2.4-3.5); Glucose 231 mg/dL (70-105); Protein, Total 7.4 g/dL (6.0-8.3); Sodium 136 mmol/L (136-145)
[2022-05-29] MEDS ORDERED: Acetaminophen 500 MG TAB ONE (14:21)
[2022-05-29] MEDS ORDERED: diphenhydrAMINE 50 MG/ML VIAL ONE (15:10)
[2022-05-29] MEDS ORDERED: Metoclopramide HCl 10 MG/2 ML VIAL ONE (15:11)
[2022-05-29] MEDS ORDERED: Ketorolac Tromethamine 30 MG/ML VIAL ONE (15:11)
[2022-05-29 15:14] LABS: Bilirubin Negative (Negative); Blood, Urine Negative (Negative); Clarity Clear (Clear); Glucose, Urine (Dipstick) Greater than 1000 mg/dL (Negative); Ketone, Urine Negative (Negative); Leukocyte Negative Leu/uL (Negative); Nitrite Negative (Negative); Protein, Urine (Dipstick) Negative (Neg-Trace); Specific Gravity, Urine 1.025 (1.002-1.036); Urobilinogen Normal mg/dL (Less than 2); pH, Urine 5.5 (5.0-9.0)
[2022-05-29 15:46] LABS: SARS-CoV-2 NAA Rapid Test Not Detected (NotDetected)
== END 2022-05-29 16:35 | disposition home or self-care (01) ==
LOC: ERS 12:00
DX: A08.4 Viral intestinal infection, unspecified (principal); I11.0 Hypertensive heart disease with heart failure; I50.9 Heart failure, unspecified; E11.9 Type 2 diabetes mellitus without complications; E78.00 Pure hypercholesterolemia, unspecified; E03.9 Hypothyroidism, unspecified; J45.909 Unspecified asthma, uncomplicated; Z20.822 Contact with and (suspected) exposure to COVID-19; Z79.4 Long term (current) use of insulin; Z79.84 Long term (current) use of oral hypoglycemic drugs; Z79.899 Other long term (current) drug therapy
CPT/HCPCS: 80053; 81003; 82010; 84484; 85025; 93005; 96361; 96365; 96375; J1200; J1885; J2405; J2765

== ENCOUNTER 2022-07-31 12:25 | Outpatient (CLI) | payer OTHER | END 2022-07-31 12:26 | disposition home or self-care (01) | LOC: ULT 12:25 | PROVIDERS: ATTEND Internal Medicine Nephrology | DX: I12.9 Hypertensive chronic kidney disease with stage 1 through stage 4 chronic kidney disease, or unspecified chronic kidney disease (principal); N18.30 Chronic kidney disease, stage 3 unspecified | CPT/HCPCS: 76770 ==

== ENCOUNTER 2023-01-31 09:44 | Outpatient (CLI) | payer OTHER | END 2023-01-31 09:45 | disposition home or self-care (01) | LOC: BICRAD 09:44 | PROVIDERS: ATTEND Anesthesiology | DX: M25.561 Pain in right knee (principal); M25.562 Pain in left knee; M54.50 Low back pain, unspecified; M47.816 Spondylosis without myelopathy or radiculopathy, lumbar region; M17.0 Bilateral primary osteoarthritis of knee | CPT/HCPCS: 72100 ==

== ENCOUNTER 2023-02-19 12:12 | Emergency (ER) | payer OTHER ==
[~2023-02-19 12:12] MED LIST changes: +Iopamidol 370 76% 100 ML VIAL ONE; -Iopamidol-370 76% 500 ML 1 ML ONE
[2023-02-19] MEDS ORDERED: Morphine 4 MG/ML VIAL ONE (15:25)
[2023-02-19] MEDS ORDERED: Ondansetron PF 4 MG/2 ML Vial ONE (15:25)
[2023-02-19 15:52] LABS: Bilirubin Negative (Negative); Blood, Urine Negative (Negative); Clarity Clear (Clear); Glucose, Urine (Dipstick) Greater than 1000 mg/dL (Negative); Ketone, Urine Negative (Negative); Leukocyte Negative Leu/uL (Negative); Nitrite Negative (Negative); Protein, Urine (Dipstick) 20 mg/dL (Neg-Trace); Specific Gravity, Urine 1.032 (1.002-1.036); Urobilinogen Normal mg/dL (Less than 2); pH, Urine 5.5 (5.0-9.0)
[2023-02-19 16:37] LABS: #Basophils 0.1 thou/uL (0.0-0.2); #Eosinphils 0.4 thou/uL (0.0-0.7); #Lymphocytes 2.6 thou/uL (1.20-3.40); #Monocytes 0.9 thou/uL (0.11-0.59); #Neutrophils 6.1 thou/uL (1.40-6.50); %Basophils 0.5 % (0.0-1.0); %Eosinophils 3.7 % (0.0-10.0); %Lymphocytes 26.1 % (21.0-51.0); %Monocytes 9.3 % (0.0-10.0); %Neutrophils 60.4 % (42.0-75.0); Hemoglobin 13.6 g/dL (12.0-16.0); Mean Corpuscular Volume 85.2 fl (78.0-98.0); Mean Platelet Volume 8.6 fL (7.4-10.4); Platelet Count 318 10x3/uL (130-400); RBC Distribution Width 14.3 % (11.5-14.5); Red Blood Cell (RBC) Count 4.69 mill/uL (4.20-5.40)
[2023-02-19 16:58] LABS: ALT (SGPT) 22 U/L (8-55); AST (SGOT) 14 U/L (5-34); Albumin 3.7 g/dL (3.5-5.0); Alkaline Phosphatase 82 U/L (40-110); Anion Gap 13 mmol/L (10-20); BUN (Urea Nitrogen) 23 mg/dL (9.8-20.1); Bilirubin, Total 0.3 mg/dL (0.2-1.2); Calc. Creatinine Clearance 0 mL/min (70-130); Carbon Dioxide 26 mmol/L (22-29); Chloride 104 mmol/L (98-107); Estimated GFR 52; Globulin 3.6 g/dL (2.4-3.5); Glucose 109 mg/dL (70-105); Lipase 34 U/L (8-78); Potassium 3.3 mmol/L (3.5-5.1); Protein, Total 7.3 g/dL (6.0-8.3); Sodium 140 mmol/L (136-145)
== END 2023-02-19 18:07 | disposition home or self-care (01) ==
LOC: ERS 12:12
DX: R19.7 Diarrhea, unspecified (principal); R10.30 Lower abdominal pain, unspecified; I11.0 Hypertensive heart disease with heart failure; I50.9 Heart failure, unspecified; E11.9 Type 2 diabetes mellitus without complications; Z79.899 Other long term (current) drug therapy
CPT/HCPCS: 36415; 36416; 74177; 80053; 81003; 83605; 83690; 85025; 94760; 96374; 96375; J2270; J2405; Q9967

== ENCOUNTER 2023-03-27 19:30 | Outpatient (CLI) | payer OTHER | END 2023-03-27 19:31 | disposition home or self-care (01) | LOC: SLEEPLAB 19:30 | PROVIDERS: ATTEND Internal Medicine Critical Care Medicine | DX: G47.33 Obstructive sleep apnea (adult) (pediatric) (principal); G47.31 Primary central sleep apnea; R53.83 Other fatigue; R06.83 Snoring; I25.5 Ischemic cardiomyopathy | CPT/HCPCS: 95810 ==

== ENCOUNTER 2023-05-01 19:30 | Outpatient (CLI) | payer OTHER | END 2023-05-01 19:31 | disposition home or self-care (01) | LOC: SLEEPLAB 19:30 | PROVIDERS: ATTEND Internal Medicine Critical Care Medicine | DX: G47.33 Obstructive sleep apnea (adult) (pediatric) (principal); R06.83 Snoring; I42.9 Cardiomyopathy, unspecified; G47.31 Primary central sleep apnea; R53.83 Other fatigue | CPT/HCPCS: 95811 ==

== ENCOUNTER 2023-06-04 08:16 | Outpatient (CLI) | payer OTHER | END 2023-06-04 08:17 | disposition home or self-care (01) | LOC: BICMRI 08:16 | PROVIDERS: ATTEND Anesthesiology | DX: M47.816 Spondylosis without myelopathy or radiculopathy, lumbar region (principal) | CPT/HCPCS: 72148 ==

== ENCOUNTER 2023-08-27 15:36 | Inpatient (IN) | payer OTHER ==
[~2023-08-27 15:36] MED LIST changes: -Iopamidol 370 76% 100 ML VIAL ONE; +Iopamidol-370 76% 500 ML MDV (1 ML CHARGE) ONE
[2023-08-27 16:54] LABS: #Eosinphils 0.2 thou/uL (0.0-0.7); #Monocytes 0.9 thou/uL (0.11-0.59); #Neutrophils 6.9 thou/uL (1.40-6.50); %Basophils 0.4 % (0.0-1.0); %Eosinophils 2.6 % (0.0-10.0); %Lymphocytes 9.3 % (21.0-51.0); %Monocytes 10.5 % (0.0-10.0); %Neutrophils 76.4 % (42.0-75.0); Hematocrit 46.6 % (36.0-47.0); Mean Corpuscular HGB CONC 32.2 g/dL (32.0-36.0); Mean Corpuscular Hemoglobin 26.8 pg (27.0-31.0); Mean Corpuscular Volume 83.4 fl (78.0-98.0); Mean Platelet Volume 10.4 fL (7.4-10.4); Platelet Count 388 10x3/uL (130-400); RBC Distribution Width 14.6 % (11.5-14.5); Red Blood Cell (RBC) Count 5.59 mill/uL (4.20-5.40)
[2023-08-27] MEDS ORDERED: Cefepime 2 GM VIAL ONE (16:55)
[2023-08-27] MEDS ORDERED: Acetaminophen 500 MG TAB ONE (16:55)
[2023-08-27] MEDS ORDERED: Sodium Chloride 0.9% 100 ML ONE (16:56)
[2023-08-27 17:25] LABS: Troponin I 0.035 ng/mL (< 0.028)
[2023-08-27 17:28] LABS: ALT (SGPT) 25 U/L (8-55); AST (SGOT) 20 U/L (5-34); Albumin 4.3 g/dL (3.5-5.0); Alkaline Phosphatase 97 U/L (40-110); Anion Gap 14 mmol/L (10-20); BUN (Urea Nitrogen) 14 mg/dL (9.8-20.1); Bilirubin, Total 0.4 mg/dL (0.2-1.2); Calc. Creatinine Clearance 0 mL/min (70-130); Calcium 9.2 mg/dL (7.8-10.44); Carbon Dioxide 27 mmol/L (22-29); Chloride 100 mmol/L (98-107); Estimated GFR 55; Globulin 3.6 g/dL (2.4-3.5); Glucose 148 mg/dL (70-105); Lipase 23 U/L (8-78); Potassium 3.4 mmol/L (3.5-5.1); Protein, Total 7.9 g/dL (6.0-8.3); Sodium 138 mmol/L (136-145)
[2023-08-27] MEDS ORDERED: Vancomycin 1 GM/200 ML (FROZEN) BAG ONE (17:36)
[2023-08-27] MEDS ORDERED: Nitroglycerin 0.4 MG TAB 1 EACH ONE (17:53)
[2023-08-27] MEDS ORDERED: Aspirin Chewable 81 MG TAB ONE (17:53)
[2023-08-27 18:10] LABS: Magnesium 1.9 mg/dL (1.6-2.6)
[2023-08-27 22:41] VITALS: BMI 44.9
[2023-08-27] MEDS ORDERED: Ondansetron PF 4 MG/2 ML Vial IVP PRN (23:23)
[2023-08-27] MEDS ORDERED: Dextrose 50% Abboject 50 ML SYRINGE SLOW IVP PRN (23:24)
[2023-08-27] MEDS ORDERED: Dextrose 5% in Water 1,000 ML IV PRN (23:24)
[2023-08-27] MEDS ORDERED: HumaLOG 300 UNITS/3 ML VIAL SC PRN (23:24)
[2023-08-27] MEDS ORDERED: Glucagon 1 MG/ML KIT IM PRN (23:24)
[2023-08-27] MEDS ORDERED: Potassium Chloride 20 MEQ TAB PO SCH (23:30)
[2023-08-27 23:48] LABS: Troponin I 0.019 ng/mL (< 0.028)
[2023-08-27 23:54] LABS: Bilirubin Negative (Negative); Blood, Urine Negative (Negative); CAUTI Indications for Culture Pelvic or flank pain; Clarity Clear (Clear); Glucose, Urine (Dipstick) >=1000 mg/dL (Negative); Ketone, Urine Negative (Negative); Leukocyte Negative Leu/uL (Negative); Nitrite Negative (Negative); Protein, Urine (Dipstick) 100 mg/dL (Neg-Trace); Specific Gravity, Urine 1.037 (1.002-1.036); Squamous Epithelial 0-3 HPF (0-3); Urobilinogen Normal mg/dL (Less than 2); WBC/HPF 0-3 HPF (0-3); pH, Urine 6.5 (5.0-9.0)
[2023-08-27 23:55] LABS: Bacteria/HPF 1+ HPF (None Seen)
[2023-08-27 23:56] LABS: Urine Culture Reflex No No
[2023-08-28] MEDS ORDERED: Potassium Chloride 20 MEQ TAB ONE (00:06)
[2023-08-28 00:11] LABS: SARS-CoV-2 NAA Rapid Test Not Detected (NotDetected)
[2023-08-28 02:37] LABS: Troponin I 0.023 ng/mL (< 0.028)
[2023-08-28] MEDS ORDERED: Nitroglycerin 0.4 MG TAB (25 Tab Bottle) SL PRN (03:54)
[2023-08-28] MEDS ORDERED: Carvedilol 25 MG TAB PO SCH ×2 (04:30→08:00)
[2023-08-28] MEDS ORDERED: Furosemide 40 MG TAB PO SCH ×2 (04:30→09:00)
[2023-08-28] MEDS ORDERED: Sodium Chloride 0.9% 100 ML ONE (04:35)
[2023-08-28] MEDS ORDERED: Furosemide 40 MG TAB ONE (04:35)
[2023-08-28] MEDS ORDERED: Carvedilol 25 MG TAB ONE (04:35)
[2023-08-28] MEDS ORDERED: Cefepime 2 GM VIAL ONE (04:35)
[2023-08-28] MEDS: Cefepime 2 GM in Sodium Chloride 0.9% 100 ML IVPB SCH ×2 (04:42→16:45)
[2023-08-28 04:50] LABS: Hematocrit 41.4 % (36.0-47.0); Hemoglobin 13.2 g/dL (12.0-16.0); Mean Corpuscular HGB CONC 31.9 g/dL (32.0-36.0); Mean Corpuscular Hemoglobin 26.9 pg (27.0-31.0); Mean Corpuscular Volume 84.5 fl (78.0-98.0); Platelet Count 331 10x3/uL (130-400); RBC Distribution Width 14.8 % (11.5-14.5); White Blood Cell (WBC) Count 7.7 10x3/uL (4.8-10.8)
[2023-08-28 04:51] LABS: #Eosinphils 0.2 thou/uL (0.0-0.7); #Monocytes 1.1 thou/uL (0.11-0.59); #Neutrophils 5.2 thou/uL (1.40-6.50); %Basophils 0.4 % (0.0-1.0); %Eosinophils 2.7 % (0.0-10.0); %Lymphocytes 15.1 % (21.0-51.0); %Monocytes 14.6 % (0.0-10.0); %Neutrophils 66.7 % (42.0-75.0); Mean Platelet Volume 10.6 fL (7.4-10.4)
[2023-08-28 05:02] LABS: Hemoglobin A1c 8.9 % (4.0-6.0)
[2023-08-28 05:10] LABS: Anion Gap 13 mmol/L (10-20); BUN (Urea Nitrogen) 14 mg/dL (9.8-20.1); Calc. Creatinine Clearance 120 mL/min (70-130); Calcium 8.4 mg/dL (7.8-10.44); Carbon Dioxide 22 mmol/L (22-29); Cardiac Risk 6.2 (Less than 4.5); Chloride 105 mmol/L (98-107); Cholesterol 185 mg/dl (< 200 Desired); Estimated GFR 63; Glucose 269 mg/dL (70-105); HDL Cholesterol 30 mg/dL (>60 Neg Risk); LDL Cholesterol, Calculated 137 mg/dL; Magnesium 1.8 mg/dL (1.6-2.6); Potassium 3.7 mmol/L (3.5-5.1); Sodium 136 mmol/L (136-145); Triglycerides 91 mg/dL (Less than 150)
[2023-08-28] MEDS ORDERED: Vancomycin 1 GM in Premix 1 BAG IVPB SCH (06:00)
[2023-08-28] MEDS ORDERED: Vancomycin 1 GM/200 ML (FROZEN) BAG ONE (08:00)
[2023-08-28] MEDS: Acetaminophen 325 MG TAB PO PRN ×2 (09:39→17:25)
[2023-08-28] MEDS: Spironolactone 100 MG TAB PO SCH (09:39)
[2023-08-28] MEDS: Empagliflozin 25 MG TAB PO SCH (09:39)
[2023-08-28] MEDS: Sacubitril 24MG/Valsartan 26 MG TAB PO SCH ×2 (09:39→20:51)
[2023-08-28] MEDS: HumaLOG 300 UNITS/3 ML VIAL SC PRN ×2 (14:14→16:52)
[2023-08-28] MEDS: Carvedilol 25 MG TAB PO SCH (16:45)
[2023-08-28] MEDS: Atorvastatin Calcium 40 MG TAB PO SCH (20:50)
[2023-08-28] MEDS: Gabapentin 300 MG CAP PO SCH (20:50)
[2023-08-29] MEDS: Cefepime 2 GM in Sodium Chloride 0.9% 100 ML IVPB SCH ×2 (04:40→16:55)
[2023-08-29 04:58] LABS: #Eosinphils 0.3 thou/uL (0.0-0.7); #Monocytes 0.9 thou/uL (0.11-0.59); #Neutrophils 3.3 thou/uL (1.40-6.50); %Basophils 0.5 % (0.0-1.0); %Eosinophils 4.4 % (0.0-10.0); %Lymphocytes 25.8 % (21.0-51.0); %Neutrophils 53.6 % (42.0-75.0); Hematocrit 41.2 % (36.0-47.0); Hemoglobin 12.8 g/dL (12.0-16.0); Mean Corpuscular HGB CONC 31.1 g/dL (32.0-36.0); Mean Corpuscular Hemoglobin 26.7 pg (27.0-31.0); Mean Platelet Volume 10.5 fL (7.4-10.4); Platelet Count 329 10x3/uL (130-400); Red Blood Cell (RBC) Count 4.79 mill/uL (4.20-5.40); White Blood Cell (WBC) Count 6.1 10x3/uL (4.8-10.8)
[2023-08-29 05:30] LABS: Anion Gap 14 mmol/L (10-20); BUN (Urea Nitrogen) 21 mg/dL (9.8-20.1); Calc. Creatinine Clearance 101 mL/min (70-130); Calcium 8.4 mg/dL (7.8-10.44); Carbon Dioxide 23 mmol/L (22-29); Chloride 105 mmol/L (98-107); Estimated GFR 51; Glucose 212 mg/dL (70-105); Potassium 3.6 mmol/L (3.5-5.1); Sodium 138 mmol/L (136-145)
[2023-08-29] MEDS: Furosemide 40 MG TAB PO SCH (09:00)
[2023-08-29] MEDS: Sacubitril 24MG/Valsartan 26 MG TAB PO SCH ×2 (09:00→20:34)
[2023-08-29] MEDS: Carvedilol 25 MG TAB PO SCH ×2 (09:00→16:55)
[2023-08-29] MEDS: Spironolactone 100 MG TAB PO SCH (09:00)
[2023-08-29] MEDS: Empagliflozin 25 MG TAB PO SCH (09:00)
[2023-08-29] MEDS: Acetaminophen 325 MG TAB PO PRN (11:31)
[2023-08-29] MEDS: HumaLOG 300 UNITS/3 ML VIAL SC PRN ×2 (11:31→18:21)
[2023-08-29] MEDS: Atorvastatin Calcium 40 MG TAB PO SCH (20:34)
[2023-08-29] MEDS: Gabapentin 300 MG CAP PO SCH (20:34)
[2023-08-30 04:53] LABS: #Eosinphils 0.4 thou/uL (0.0-0.7); #Monocytes 0.8 thou/uL (0.11-0.59); #Neutrophils 4.9 thou/uL (1.40-6.50); %Basophils 0.4 % (0.0-1.0); %Eosinophils 4.7 % (0.0-10.0); %Lymphocytes 26.2 % (21.0-51.0); %Monocytes 9.8 % (0.0-10.0); %Neutrophils 58.4 % (42.0-75.0); Hematocrit 41.6 % (36.0-47.0); Hemoglobin 13.3 g/dL (12.0-16.0); Mean Corpuscular Hemoglobin 27.4 pg (27.0-31.0); Mean Corpuscular Volume 85.8 fl (78.0-98.0); Mean Platelet Volume 10.7 fL (7.4-10.4); Platelet Count 349 10x3/uL (130-400); RBC Distribution Width 14.8 % (11.5-14.5); Red Blood Cell (RBC) Count 4.85 mill/uL (4.20-5.40); White Blood Cell (WBC) Count 8.4 10x3/uL (4.8-10.8)
[2023-08-30 05:29] LABS: Anion Gap 16 mmol/L (10-20); BUN (Urea Nitrogen) 26 mg/dL (9.8-20.1); Calc. Creatinine Clearance 88 mL/min (70-130); Calcium 8.7 mg/dL (7.8-10.44); Carbon Dioxide 24 mmol/L (22-29); Chloride 104 mmol/L (98-107); Estimated GFR 44; Glucose 203 mg/dL (70-105); Potassium 3.7 mmol/L (3.5-5.1); Sodium 140 mmol/L (136-145)
[2023-08-30] MEDS: Cefepime 2 GM in Sodium Chloride 0.9% 100 ML IVPB SCH ×2 (06:04→16:03)
[2023-08-30] MEDS: Empagliflozin 25 MG TAB PO SCH (08:34)
[2023-08-30] MEDS: Sacubitril 24MG/Valsartan 26 MG TAB PO SCH (08:34)
[2023-08-30] MEDS: Spironolactone 100 MG TAB PO SCH (08:34)
[2023-08-30] MEDS: Carvedilol 25 MG TAB PO SCH ×2 (08:34→16:03)
[2023-08-30] MEDS: Furosemide 40 MG TAB PO SCH (08:34)
[2023-08-30] MEDS ORDERED: Sodium Chloride 0.9% 1,000 ML IV SCH (09:00)
[2023-08-30] MEDS: HumaLOG 300 UNITS/3 ML VIAL SC PRN ×2 (11:34→16:56)
[2023-08-30] MEDS: Acetaminophen 325 MG TAB PO PRN ×2 (11:34→20:29)
[2023-08-30] MEDS: Gabapentin 300 MG CAP PO SCH (20:28)
[2023-08-30] MEDS: Atorvastatin Calcium 40 MG TAB PO SCH (20:29)
[2023-08-31 05:47] LABS: ALT (SGPT) 17 U/L (8-55); AST (SGOT) 16 U/L (5-34); Alkaline Phosphatase 80 U/L (40-110); Anion Gap 14 mmol/L (10-20); BUN (Urea Nitrogen) 25 mg/dL (9.8-20.1); Bilirubin, Total 0.3 mg/dL (0.2-1.2); Calc. Creatinine Clearance 112 mL/min (70-130); Calcium 9.1 mg/dL (7.8-10.44); Carbon Dioxide 25 mmol/L (22-29); Chloride 105 mmol/L (98-107); Estimated GFR 58; Globulin 3.1 g/dL (2.4-3.5); Glucose 170 mg/dL (70-105); Potassium 3.5 mmol/L (3.5-5.1); Protein, Total 7.1 g/dL (6.0-8.3); Sodium 140 mmol/L (136-145)
[2023-08-31] MEDS: Cefepime 2 GM in Sodium Chloride 0.9% 100 ML IVPB SCH (06:14)
[2023-08-31] MEDS: Acetaminophen 325 MG TAB PO PRN ×2 (06:15→12:43)
[2023-08-31] MEDS: Empagliflozin 25 MG TAB PO SCH (08:54)
[2023-08-31] MEDS: Carvedilol 25 MG TAB PO SCH (08:54)
[2023-08-31] MEDS: Spironolactone 100 MG TAB PO SCH (08:55)
[2023-08-31] MEDS: Sacubitril 24MG/Valsartan 26 MG TAB PO SCH (08:55)
[2023-08-31] MEDS: Furosemide 40 MG TAB PO SCH (08:55)
[2023-08-31] MEDS ORDERED: Sodium Chloride 0.9% 1,000 ML IV SCH (09:15)
[2023-08-31 12:03] VITALS: BP 143/81; TEMP 97
[2023-08-31] MEDS: HumaLOG 300 UNITS/3 ML VIAL SC PRN (12:36)
== END 2023-08-31 15:23 | disposition home or self-care (01) | DRG 194 ==
LOC: ERS 15:36 → ERHOLD 22:02 → INTOOBSV 22:02 → 2NO 22:17 → OBSVTOIN 08-29 09:25
PROVIDERS: ADMIT Internal Medicine; ATTEND Internal Medicine
DX: J18.9 Pneumonia, unspecified organism (principal); E66.2 Morbid (severe) obesity with alveolar hypoventilation; I50.22 Chronic systolic (congestive) heart failure; I13.0 Hypertensive heart and chronic kidney disease with heart failure and stage 1 through stage 4 chronic kidney disease, or unspecified chronic kidney disease; N17.9 Acute kidney failure, unspecified; Z68.41 Body mass index [BMI] 40.0-44.9, adult; N18.2 Chronic kidney disease, stage 2 (mild); E11.22 Type 2 diabetes mellitus with diabetic chronic kidney disease; J45.909 Unspecified asthma, uncomplicated; J45.20 Mild intermittent asthma, uncomplicated; I25.10 Atherosclerotic heart disease of native coronary artery without angina pectoris; F41.9 Anxiety disorder, unspecified; F32.A Depression, unspecified; Z79.899 Other long term (current) drug therapy; Z88.5 Allergy status to narcotic agent; Z88.8 Allergy status to other drugs, medicaments and biological substances; Z90.49 Acquired absence of other specified parts of digestive tract; Z98.890 Other specified postprocedural states; Z11.52 Encounter for screening for COVID-19
CPT/HCPCS: 36415; 36416; 71045; 71275; 78451; 80048; 80053; 80061; 81001; 83036; 83605; 83690; 83735; 83880; 84484; 85025; 87040; 87081; 87430; 93005; 93306; 96365; 96367; 96372; 96376; A9502; G0378; J0692; J1650; J1815; J3370-JW; J3490; J7050; J7611; Q9967

== ENCOUNTER 2024-04-10 16:01 | Emergency (ER) | payer OTHER ==
[2024-04-10] MEDS ORDERED: Lidocaine 2% Viscous 10 mL, Alum & Magn 30 mL SSW SCH (16:30)
[2024-04-10 16:58] LABS: #Basophils Less than 0.03 10x3/uL (0.0-0.2); %Basophils 0.1 % (0.0-1.0); %Eosinophils 1.4 % (0.0-10.0); %Lymphocytes 16.9 % (21.0-51.0); %Neutrophils 72.3 % (42.0-75.0); Hematocrit 40.4 % (36.0-47.0); Hemoglobin 12.9 g/dL (12.0-16.0); Mean Corpuscular HGB CONC 31.9 g/dL (32.0-36.0); Mean Corpuscular Hemoglobin 27.4 pg (27.0-31.0); Mean Platelet Volume 10.7 fL (7.4-10.4); Platelet Count 378 10x3/uL (130-400); RBC Distribution Width 13.8 % (11.5-14.5)
[2024-04-10 17:14] LABS: ALT (SGPT) 21 U/L (8-55); AST (SGOT) 13 U/L (5-34); Albumin 3.4 g/dL (3.5-5.0); Alkaline Phosphatase 100 U/L (40-110); Anion Gap 17 mmol/L (10-20); BUN (Urea Nitrogen) 22 mg/dL (9.8-20.1); Bilirubin, Total 0.3 mg/dL (0.2-1.2); Calc. Creatinine Clearance 0 mL/min (70-130); Calcium 9.5 mg/dL (7.8-10.44); Carbon Dioxide 21 mmol/L (22-29); Chloride 108 mmol/L (98-107); Estimated GFR 60; Globulin 3.9 g/dL (2.4-3.5); Glucose 157 mg/dL (70-105); Lipase 28 U/L (8-78); Potassium 4.1 mmol/L (3.5-5.1); Protein, Total 7.3 g/dL (6.0-8.3); Sodium 142 mmol/L (136-145)
== END 2024-04-10 19:14 | disposition home or self-care (01) ==
LOC: ERS 16:01
DX: Z53.21 Procedure and treatment not carried out due to patient leaving prior to being seen by health care provider (principal)
CPT/HCPCS: 36415; 74176; 80053; 83605; 83690; 85025

== ENCOUNTER 2024-07-13 08:54 | Emergency (ER) | payer OTHER ==
[2024-07-13 09:33] LABS: #Basophils 0.05 10x3/uL (0.0-0.2); %Basophils 0.6 % (0.0-1.0); %Eosinophils 3.6 % (0.0-10.0); %Lymphocytes 18.2 % (21.0-51.0); %Monocytes 8.4 % (0.0-10.0); %Neutrophils 68.8 % (42.0-75.0); Hematocrit 43.6 % (36.0-47.0); Hemoglobin 14.1 g/dL (12.0-16.0); Mean Corpuscular HGB CONC 32.3 g/dL (32.0-36.0); Mean Corpuscular Hemoglobin 26.5 pg (27.0-31.0); Mean Corpuscular Volume 81.8 fL (78.0-98.0); Mean Platelet Volume 11.3 fL (7.4-10.4); Platelet Count 382 10x3/uL (130-400); RBC Distribution Width 14.9 % (11.5-14.5); Red Blood Cell (RBC) Count 5.33 mill/uL (4.20-5.40)
[2024-07-13 10:02] LABS: ALT (SGPT) 17 U/L (8-55); AST (SGOT) 11 U/L (5-34); Albumin 3.9 g/dL (3.5-5.0); Alkaline Phosphatase 120 U/L (40-110); Anion Gap 16 mmol/L (10-20); BUN (Urea Nitrogen) 19 mg/dL (9.8-20.1); Bilirubin, Total 0.4 mg/dL (0.2-1.2); Calc. Creatinine Clearance 0 mL/min (70-130); Calcium 9.5 mg/dL (7.8-10.44); Carbon Dioxide 24 mmol/L (22-29); Chloride 100 mmol/L (98-107); Estimated GFR 46; Glucose 447 mg/dL (70-105); Potassium 4.9 mmol/L (3.5-5.1); Protein, Total 7.9 g/dL (6.0-8.3); Sodium 135 mmol/L (136-145)
[2024-07-13 11:00] LABS: Bilirubin Negative (Negative); Blood, Urine Negative (Negative); CAUTI Indications for Culture Dysuria,urgency,freq; Clarity Clear (Clear); Glucose, Urine (Dipstick) Greater than 1000 mg/dL (Negative); Ketone, Urine 20 mg/dL (Negative); Leukocyte Negative Leu/uL (Negative); Nitrite Negative (Negative); Protein, Urine (Dipstick) Negative (Neg-Trace); RBC/HPF 0-3 HPF (0-3); Specific Gravity, Urine 1.033 (1.002-1.036); Squamous Epithelial 0-3 HPF (0-3); Urobilinogen Normal mg/dL (Less than 2); WBC/HPF 0-3 HPF (0-3); Yeast-Budding 2+ HPF (None Seen); pH, Urine 5.5 (5.0-9.0)
[2024-07-13 11:05] LABS: Bacteria/HPF 1+ HPF (None Seen)
[2024-07-13 11:06] LABS: Urine Culture Reflex No No
== END 2024-07-13 11:31 | disposition home or self-care (01) ==
LOC: ERS 08:54
DX: E11.65 Type 2 diabetes mellitus with hyperglycemia (principal); I11.0 Hypertensive heart disease with heart failure; I50.9 Heart failure, unspecified
CPT/HCPCS: 36415; 80053; 81001; 82010; 85025; 99284

== ENCOUNTER 2024-07-19 12:41 | Outpatient (CLI) | payer OTHER | END 2024-07-19 12:42 | disposition home or self-care (01) | LOC: BICRAD 12:41 | PROVIDERS: ATTEND Nurse Practitioner Family | DX: M25.511 Pain in right shoulder (principal); M19.011 Primary osteoarthritis, right shoulder ==

== ENCOUNTER 2024-10-19 09:20 | Outpatient (CLI) | payer OTHER | END 2024-10-19 09:21 | disposition home or self-care (01) | LOC: BICRAD 09:20 | PROVIDERS: ATTEND Nurse Practitioner Family | DX: M25.512 Pain in left shoulder (principal); M77.8 Other enthesopathies, not elsewhere classified ==

== ENCOUNTER 2025-04-20 11:49 | Outpatient (CLI) | payer MEDICAID | END 2025-04-20 11:50 | disposition home or self-care (01) | LOC: BICMAMMO 11:49 | PROVIDERS: ATTEND Nurse Practitioner Family | DX: Z12.31 Encounter for screening mammogram for malignant neoplasm of breast (principal); M47.816 Spondylosis without myelopathy or radiculopathy, lumbar region | CPT/HCPCS: 72100; 77063; 77067 ==

== ENCOUNTER 2025-07-16 12:00 | Emergency (ER) | payer MEDICAID, OTHER ==
[2025-07-16 12:39] LABS: #Basophils 0.03 10x3/uL (0.0-0.2); #Eosinophils 0.36 10x3/uL (0.0-0.7); #Monocytes 0.62 10x3/uL (0.11-0.59); #Neutrophils 5.65 10x3/uL (1.40-6.50); %Basophils 0.3 % (0.0-1.0); %Eosinophils 4.0 % (0.0-10.0); %Lymphocytes 25.0 % (21.0-51.0); %Monocytes 6.9 % (0.0-10.0); %Neutrophils 63.4 % (42.0-75.0); Hematocrit 38.1 % (36.0-47.0); Hemoglobin 12.0 g/dL (12.0-16.0); Mean Corpuscular Hemoglobin 26.3 pg (27.0-31.0); Mean Corpuscular Volume 83.4 fL (78.0-98.0); Platelet Count 374 10x3/uL (130-400); Red Blood Cell (RBC) Count 4.57 mill/uL (4.20-5.40); White Blood Cell (WBC) Count 8.93 10x3/uL (4.8-10.8)
[2025-07-16 12:56] LABS: ALT (SGPT) 13 U/L (Less than 34); AST (SGOT) 19 U/L (11-34); Albumin 3.5 g/dL (3.1-4.5); Alkaline Phosphatase 83 U/L (40-110); Anion Gap 17 mmol/L (10-20); BUN (Urea Nitrogen) 14 mg/dL (9.8-20.1); Bilirubin, Total 0.3 mg/dL (0.3-1.2); Calc. Creatinine Clearance 0 mL/min (70-130); Calcium 8.9 mg/dL (7.8-10.44); Carbon Dioxide 20 mmol/L (22-29); Chloride 107 mmol/L (98-107); Globulin 3.7 g/dL (2.4-3.5); Glucose 127 mg/dL (70-105); Potassium 3.9 mmol/L (3.5-5.1); Sodium 140 mmol/L (136-145)
[2025-07-16] MEDS ORDERED: Acetaminophen 500 MG TAB ONE (13:07)
[2025-07-16] MEDS ORDERED: Prochlorperazine 10 MG/2 ML VIAL ONE (13:08)
[2025-07-16] MEDS ORDERED: diphenhydrAMINE 50 MG/ML VIAL ONE (13:08)
== END 2025-07-16 15:56 | disposition home or self-care (01) ==
LOC: ERS 12:00
DX: R51.9 Headache, unspecified (principal); R29.700 NIHSS score 0; E11.9 Type 2 diabetes mellitus without complications; I11.0 Hypertensive heart disease with heart failure; I50.9 Heart failure, unspecified; E78.00 Pure hypercholesterolemia, unspecified; E03.9 Hypothyroidism, unspecified; Z79.899 Other long term (current) drug therapy; Z79.890 Hormone replacement therapy; Z79.84 Long term (current) use of oral hypoglycemic drugs
CPT/HCPCS: 80053; 85025; 96374; 96375; J0780; J1200